=== PATIENT | male | born 1955 | race African-American/Black ===

== ENCOUNTER 2016-09-20 20:10 | Inpatient (IN) | payer OTHER ==
[2016-09-20 20:42] VITALS: BMI 23.3
--- NOTE | 2016-09-20 21:35 | HP ---
CIWA Score - CIWA Score Nausea/Vomitin Muscle Tremors: 3 Anxiety: 3 Agitation: 3 Paroxysmal Sweats: 2 Orientation: 1-Uncertain about Date Tacttile Disturbances: 1-Very Mild Itch/Numbness Auditory Disturbances: 0-None Visual Disturbances: 0-None Headache: 0-None Present CIWA-Ar Total Score: 16 Admission [facility] - HPI Chief Complaint: WITHDRAWAL SYMPTOMS Allergies/Adverse Reactions: Allergies Allergy/AdvReac Type Severity Reaction Status Date / Time No Known Allergies Allergy Verified 06/26/13 15:16 History of Present Illness: 60 Y.O. MAN WITH AN EXTENSIVE HISTORY OF DRUG AND ALCOHOL DEPENDENCE IS SEEKING DETOX. HE WAS PREVIOUSLY HERE IN 06/2013. HE DENIES ANY SIGNIFICANT PERIOD OF SOBRIETY. Exam Limitations: No Limitations - Ebola screening Have you traveled outside of the country in the last 21 days: No Have you had contact with anyone from an Ebola affected area: No Have you been sick,other than usual withdrawal symptoms: No Do you have a fever: No - Review of Systems Constitutional: Night Sweats, Weight Stable EENT: reports: Blurred Vision, Nose Congestion, Difficulty Swallowing Respiratory: reports: Shortness of Breath Cardiac: reports: No Symptoms Reported GI: reports: Diarrhea : reports: No Symptoms Reported Musculoskeletal: reports: Muscle Pain, Muscle Weakness Integumentary: reports: No Symptoms Reported Neuro: reports: Tremors Endocrine: reports: No Symptoms Reported Hematology: reports: No Symptoms Reported Psychiatric: reports: Mood/Affect Appropiate, Anxious, Depressed Other Systems: Reviewed and Negative Patient History - Patient Medical History Hx Anemia: No Hx Asthma: No Hx Chronic Obstructive Pulmonary Disease (COPD): No Hx Cancer: No Hx Cardiac Disorders: No Hx Congestive Heart Failure: No Hx Hypertension: Yes Hx Hypercholesterolemia: No Hx Pacemaker: No HX Cerebrovascular Accident: No Hx Seizures: No Hx Dementia: No Hx Diabetes: No Hx Gastrointestinal Disorders: Yes (GERD) Hx Liver Disease: No Hx Genitourinary Disorders: Yes (SYPHILIS HX WITH TX IN THE PAST) Hx Sexually Transmitted Disorders: Yes (syphilis) Hx Renal Disease (ESRD): No Hx Thyroid Disease: No Hx Human Immunodeficiency Virus (HIV): Yes (SINCE 1996--CURRENTLY ON ANTIVIRAL MEDICATIONS) Hx Hepatitis C: No Hx Depression: Yes (AND ANXIETY) Hx Suicide Attempt: No (DENIES) Hx Bipolar Disorder: No Hx Schizophrenia: No - Patient Surgical History Past Surgical History: Yes Hx Neurologic Surgery: No Hx Cataract Extraction: No Hx Cardiac Surgery: No Hx Lung Surgery: No Hx Breast Surgery: No Hx Breast Biopsy: No Hx Abdominal Surgery: No Hx Appendectomy: Yes (AT 13 YRS OLD) Hx Cholecystectomy: No Hx Genitourinary Surgery: No Hx Section: No Hx Orthopedic Surgery: No Other Surgical History: appendectomy at age 13 Anesthesia Reaction: No - PPD History Previous Implant?: Yes Documented Results: Negative w/proof Implanted On Prior [facility] Admission?: Yes Date: 06/28/13 Results: 0 PPD to be Administered?: Yes - Reproductive History Patient is a Female of Child Bearing Age (11 -55 yrs old): No - Smoking Cessation Smoking history: Current every day smoker Have you smoked in the past 12 months: Yes Aproximately how many cigarettes per day: 2 Hx Chewing Tobacco Use: No Initiated information on smoking cessation: Yes 'Breaking Loose' booklet given: 09/20/16 - Substance & Tx. History Hx Alcohol Use: Yes Hx Substance Use: Yes Substance Use Type: Alcohol, Cocaine, Marijuana Hx Substance Use Treatment: Yes - Substances Abused Alcohol Route: Oral Frequency: Daily Amount used: 3-5 24 OZ OF BEER Age of first use: 17 Date of Last Use: 09/20/16 Crack Route: Smoking Frequency: 3-6 times per week Amount used: $125 WEEK Age of first use: 29 Date of Last Use: 09/19/16 Marijuana/Hashish Route: Smoking Frequency: Daily Amount used: $40 Age of first use: 19 Date of Last Use: 09/19/16 Family Disease History - Family Disease History Family Disease History: Diabetes: Father, Brother, Sister, Heart Disease: Mother (ARTHRITIS, PSORIASIS), Respiratory: Father, Mother, Brother, Sister Admission Physical Exam S - Vital Signs Vital Signs: Vital Signs - 24 hr 09/20/16 20:40 Temperature 96.2 F L Pulse Rate 92 H Respiratory 18 Rate Blood Pressure 142/83 - Physical General Appearance: Yes: Anxious HEENTM: Yes: Normal ENT Inspection Respiratory: Yes: Lungs Clear, Normal Breath Sounds, No Respiratory Distress, No Accessory Muscle Use Neck: Yes: Trachea in good position Breast: Yes: Breast Exam Deferred Cardiology: Yes: Regular Rhythm, Regular Rate Abdominal: Yes: Flat, Soft Genitourinary: Yes: Other (DENIES ANY COMPLAINTS) Musculoskeletal: Yes: Back pain, Muscle Pain Extremities: Yes: Normal Inspection, Normal Range of Motion Neurological: Yes: Alert, Normal Mood/Affect, Normal Response Integumentary: Yes: Normal Color, Dry, Warm Lymphatic: Yes: Within Normal Limits - Diagnostic (1) AIDS (acquired immune deficiency syndrome) Current Visit: Yes Status: Chronic (2) Cocaine dependence Current Visit: Yes Status: Chronic (3) Alcohol dependence with uncomplicated withdrawal Current Visit: Yes Status: Chronic (4) Cannabis dependence, uncomplicated Current Visit: Yes Status: Chronic Cleared for Admission [facility] - Detox or Rehab [facility] Level of Care: Medically Managed Detox Regimen/Protocol: Librium [facility] Breath Alcohol Content Breath Alcohol Content: 0 Urine Drug Screen - Results Drug Screen Negative: No Urine Drug Screen Results: THC-Marijuana, CONOR-Cocaine
[2016-09-20] MEDS ORDERED: MAGNESIUM HYDROX 2400MG/30ML ORAL SUSPENSION 30 ML CUP PO PRN (21:59)
[2016-09-20] MEDS ORDERED: chlordiazePOXIDE HCL 25 MG CAPSULE PO ONE (21:59)
[2016-09-20] MEDS ORDERED: MENTHOL/PHENOL 1 EACH UD MM PRN (21:59)
[2016-09-20] MEDS ORDERED: guaiFENesin/D-METHORPHAN HB 10 ML UNIT-DOSE CUPS PO PRN (21:59)
[2016-09-20] MEDS ORDERED: chlordiazePOXIDE HCL 25 MG CAPSULE PO PRN (21:59)
[2016-09-20] MEDS ORDERED: IBUPROFEN 400 MG TABLET (FP) PO PRN (21:59)
[2016-09-20] MEDS ORDERED: diphenhydrAMINE HCL 50 MG CAPSULE PO PRN (21:59)
[2016-09-20] MEDS ORDERED: LOPERAMIDE HCL 2 MG CAPSULE PO PRN (21:59)
[2016-09-20] MEDS ORDERED: hydrOXYzine PAMOATE 50 MG CAPSULE (FP) PO PRN (21:59)
[2016-09-20] MEDS ORDERED: MAG HYDROX/AL HYDROX/SIMETH 30 ML UNIT-DOSE CUP PO PRN (21:59)
[2016-09-20] MEDS ORDERED: ACETAMINOPHEN 325 MG TABLET (FP) PO PRN (21:59)
[2016-09-20] MEDS ORDERED: MAGNESIUM CITRATE 300 ML BOTTLE PO PRN (21:59)
[2016-09-20] MEDS ORDERED: P-EPHED 60MG/TRIPROLIDI 2.5MG TABLET PO PRN (21:59)
[2016-09-20] MEDS: THIAMINE HCL 100 MG TABLET (FP) PO SCH (23:20)
[2016-09-20] MEDS: chlordiazePOXIDE HCL 25 MG CAPSULE PO SCH (23:20)
[2016-09-20] MEDS: ATORVASTATIN CA 40 MG TABLET (FP) PO SCH (23:20)
[2016-09-21] MEDS: chlordiazePOXIDE HCL 25 MG CAPSULE PO SCH ×4 (05:35→22:13)
--- NOTE | 2016-09-21 08:29 | CONSULT ---
[facility] Psychiatric Consult - Data Date of interview: 09/21/16 Admission source: [facility] Identifying data: This is 60 years old male with no psychiatric hospitalization history, intoxicated with: Alcohol, Cannabis, Cocaine and Nicotine Substance Abuse History: - Smoking Cessation. Smoking history: Current every day smoker. Have you smoked in the past 12 months: Yes. Aproximately how many cigarettes per day: 2. Hx Chewing Tobacco Use: No. Initiated information on smoking cessation: Yes. 'Breaking Loose' booklet given: 09/20/16. - Substance & Tx. History. Hx Alcohol Use: Yes. Hx Substance Use: Yes. Substance Use Type : Alcohol, Cocaine, Marijuana. Hx Substance Use Treatment: Yes. - Substances Abused. Alcohol. Route: Oral. Frequency: Daily. Amount used: 3-5 24 OZ OF BEER. Age of first use: 17. Date of Last Use: 09/20/16. Crack. Route: Smoking. Frequency: 3-6 times per week. Amount used: $125 WEEK. Age of first use: 29. Date of Last Use: 09/19/16. Marijuana/Hashish. Route: Smoking. Frequency: Daily. Amount used: $40. Age of first use: 19. Date of Last Use: 09/19/16 Medical History: HTN, Muscle neuropathy, AIDS, Arthritis history, Psychiatric History: Oatient reports history of depression, reports taking prior to admission: Seroquel 299mg po qhs. Wellbutrin XL 300mg poqd. Trazodone 200mg po qhs Physical/Sexual Abuse/Trauma History: Denies Additional Comment: Seroquel 299mg po qhs. Wellbutrin XL 300mg poqd. Trazodone 200mg po qhs Mental Status Exam - Mental Status Exam Alert and Oriented to: Person Cognitive Function: Fair Patient Appearance: Well Groomed Mood: Apprehensive Affect: Appropriate Patient Behavior: Cooperative Speech Pattern: Appropriate Voice Loudness: Normal Thought Process: Goal Oriented Thought Disorder: Being Controlled Hallucinations: Denies Suicidal Ideation: Denies Homicidal Ideation: Denies Insight/Judgement: Fair Sleep: Difficulty falling asleep Appetite: Fair Muscle strength/Tone: Normal Gait/Station: Normal Additional Comments: Seroquel 299mg po qhs. Wellbutrin XL 300mg poqd. Trazodone 200mg po qhs Psychiatric Findings - Problem List ([place] 1, 2,3) (1) Alcohol dependence with uncomplicated withdrawal Current Visit: Yes Status: Chronic (2) Cannabis dependence, uncomplicated Current Visit: Yes Status: Chronic (3) Cocaine dependence Current Visit: Yes Status: Chronic (4) Alcohol dependence Current Visit: No Status: Acute (5) Depression Current Visit: No Status: Acute (6) Drug-induced mood disorder Current Visit: Yes Status: Acute - Initial Treatment Plan Initial Treatment Plan: Seroquel 299mg po qhs. Wellbutrin XL 300mg poqd. Trazodone 200mg po qhs
[2016-09-21] MEDS ORDERED: DARUNAVIR ETHANOLATE 100 MG/ML BULK BOTTLE PO SCH (10:00)
[2016-09-21] MEDS: NICOTINE 14 MG/24 HOURS TOPICAL PATCH TD SCH (10:15)
[2016-09-21] MEDS: ASPIRIN COATED 81 MG TABLET.EC PO SCH (10:15)
[2016-09-21] MEDS: HYDROCHLOROTHIAZIDE 25 MG TABLET (FP) PO SCH (10:15)
[2016-09-21] MEDS: amLODIPine BESYLATE 10 MG TABLET (FP) PO SCH (10:15)
[2016-09-21] MEDS: PRENATAL VITAMINS W/ FOLIC ACID TABLET (FP) PO SCH (10:15)
--- NOTE | 2016-09-21 10:29 | PN ---
[facility] CIWA - CIWA Score Nausea/Vomitin Muscle Tremors: 3 Anxiety: 3 Agitation: 3 Paroxysmal Sweats: 1-Minimal Palms Moist Orientation: 0-Oriented Tacttile Disturbances: 1-Very Mild Itch/Numbness Auditory Disturbances: 1-Very Mild Visual Disturbances: 1-Very Mild Sensitivity Headache: 2-Mild CIWA-Ar Total Score: 18 BHS Progress Note (SOAP) Subjective: ALERT,IRRITABLE,ANXIOUS,INTERRUPTED SLEEP,TREMOR Objective: 09/21/16 10:28 Vital Signs Temperature 98.2 F 09/21/16 09:48 Pulse Rate 87 09/21/16 09:48 Respiratory Rate 18 09/21/16 09:48 Blood Pressure 124/83 09/21/16 09:48 O2 Sat by Pulse Oximetry (%) EKG NSR NO CHEST PAIN,NO SOB,NO DIZZINESS LABS PENDING Assessment: 09/21/16 10:29 WITHDRAWAL SYMPTOM Plan: CONTINUE DETOX
[2016-09-21 10:59] LABS: ALBUMIN 3.7 g/dl (3.4-5.0); CALCIUM 9.3 mg/dL (8.5-10.1); MCH 31.7 pg (25.7-33.7); MCHC 34.6 g/dl (32.0-35.9); MEAN CELL VOLUME 91.7 fl (80-96); MEAN PLT VOLUME 9.2 fl (7.5-11.1); PLATELET COUNT 172 K/MM3 (134-434); RDW 15.6 % (11.9-15.9); WHITE BLOOD COUNT 5.4 K/mm3 (4.0-10.0)
[2016-09-21 11:04] LABS: BILIRUBIN,TOTAL 0.5 mg/dL (0.2-1.0); COCKROFT - GAULT 47.42; CREATININE 1.7 mg/dL (0.7-1.3); TOT PROT 7.6 g/dl (6.4-8.2)
[2016-09-21] MEDS: DARUNAVIR ETHANOLATE 800 MG TAB PO SCH (11:53)
[2016-09-21] MEDS: EMTRICITABINE 200MG/TENOFOVIR 300MG PO SCH (11:54)
[2016-09-21] MEDS: RITONAVIR 100 MG TABLET PO SCH (11:57)
[2016-09-21] MEDS ORDERED: QUEtiapine FUMARATE 100 MG TABLET (FP) PO STA (11:59)
[2016-09-21] MEDS ORDERED: PNEUMOC 13-VAL CONJ-DIP CRM/PF 0.5 ML DISP.SYRIN IM ONE (12:00)
--- NOTE | 2016-09-21 12:32 | EKG ---
Test Reason : Blood Pressure : / mmHG Vent. Rate : 075 BPM Atrial Rate : 075 BPM P-R Int : 164 ms QRS Dur : 086 ms QT Int : 380 ms P-R-T Axes : 066 075 054 degrees QTc Int : 424 ms NORMAL SINUS RHYTHM POSSIBLE LEFT ATRIAL ENLARGEMENT BORDERLINE ECG NO PREVIOUS ECGS AVAILABLE Confirmed by SUNITA DE LOS SANTOS MD ([id number]) on 09/21/2016 12:31:39 PM Referred By: Confirmed By:SUNITA DE LOS SANTOS MD
[2016-09-21 17:48] LABS: URINE APPEARANCE CLEAR; URINE BILIRUBIN NEGATIVE (NEGATIVE); URINE BLOOD NEGATIVE (NEGATIVE); URINE COLOR STRAW; URINE GLUCOSE (UA) NEGATIVE (NEGATIVE); URINE KETONE NEGATIVE (NEGATIVE); URINE LEUK ESTERASE NEGATIVE (NEGATIVE); URINE NITRITE NEGATIVE (NEGATIVE); URINE PROTEIN NEGATIVE (NEGATIVE); URINE UROBILINOGEN NEGATIVE E.U./dl (0.2-1.0)
[2016-09-21] MEDS ORDERED: QUEtiapine FUMARATE 200 MG TABLET PO SCH (22:00)
[2016-09-21] MEDS: traZODone HCL 100 MG TABLET (FP) PO SCH (22:11)
[2016-09-21] MEDS: QUEtiapine FUMARATE 100 MG TABLET (FP) PO SCH (22:11)
[2016-09-21] MEDS: ATORVASTATIN CA 40 MG TABLET (FP) PO SCH (22:11)
[2016-09-21] MEDS: THIAMINE HCL 100 MG TABLET (FP) PO SCH (22:12)
[2016-09-22] MEDS: chlordiazePOXIDE HCL 25 MG CAPSULE PO SCH ×3 (04:38→17:56)
--- NOTE | 2016-09-22 09:08 | PN ---
[facility] CIWA - CIWA Score Nausea/Vomitin Muscle Tremors: 3 Anxiety: 3 Agitation: 2 Paroxysmal Sweats: 1-Minimal Palms Moist Orientation: 0-Oriented Tacttile Disturbances: 1-Very Mild Itch/Numbness Auditory Disturbances: 1-Very Mild Visual Disturbances: 1-Very Mild Sensitivity Headache: 2-Mild CIWA-Ar Total Score: 17 BHS Progress Note (SOAP) Subjective: ALERT,IRRITABLE,ANXIOUS,INTERRUPTED SLEEP,TREMOR Objective: 09/22/16 09:06 Vital Signs Temperature 97.0 F L 09/22/16 05:58 Pulse Rate 72 09/22/16 05:58 Respiratory Rate 16 09/22/16 05:58 Blood Pressure 111/73 09/22/16 05:58 O2 Sat by Pulse Oximetry (%) 09/22/16 09:07 Laboratory Last Values WBC 5.4 K/mm3 (4.0-10.0) 09/21/16 07:00 RBC 4.02 M/mm3 (4.00-5.60) 09/21/16 07:00 Hgb 12.8 GM/dL (11.7-16.9) D 09/21/16 07:00 Hct 36.9 % (35.4-49) D 09/21/16 07:00 MCV 91.7 fl (80-96) 09/21/16 07:00 MCHC 34.6 g/dl (32.0-35.9) 09/21/16 07:00 RDW 15.6 % (11.9-15.9) 09/21/16 07:00 Plt Count 172 K/MM3 (134-434) D 09/21/16 07:00 MPV 9.2 fl (7.5-11.1) 09/21/16 07:00 Sodium 139 mmol/L (136-145) 09/21/16 07:00 Potassium 4.0 mmol/L (3.5-5.1) 09/21/16 07:00 Chloride 104 mmol/L (98-107) 09/21/16 07:00 Carbon Dioxide 28 mmol/L (21-32) 09/21/16 07:00 Anion Gap 7 (8-16) L 09/21/16 07:00 BUN 26 mg/dL (7-18) H 09/21/16 07:00 Creatinine 1.7 mg/dL (0.7-1.3) H 09/21/16 07:00 Creat Clearance w eGFR 41.46 (>60) 09/21/16 07:00 Random Glucose 84 mg/dL (74-106) 09/21/16 07:00 Calcium 9.3 mg/dL (8.5-10.1) 09/21/16 07:00 Total Bilirubin 0.5 mg/dL (0.2-1.0) D 09/21/16 07:00 AST 28 U/L (15-37) D 09/21/16 07:00 ALT 28 U/L (12-78) D 09/21/16 07:00 Alkaline Phosphatase 52 U/L (45-117) 09/21/16 07:00 Total Protein 7.6 g/dl (6.4-8.2) 09/21/16 07:00 Albumin 3.7 g/dl (3.4-5.0) 09/21/16 07:00 Urine Color Straw 09/21/16 13:00 Urine Appearance Clear 09/21/16 13:00 Urine pH 5.0 (5.0-8.0) 09/21/16 13:00 Ur Specific [place] 1.006 (1.001-1.035) 09/21/16 13:00 Urine Protein Negative (NEGATIVE) 09/21/16 13:00 Urine Glucose (UA) Negative (NEGATIVE) 09/21/16 13:00 Urine Ketones Negative (NEGATIVE) 09/21/16 13:00 Urine Blood Negative (NEGATIVE) 09/21/16 13:00 Urine Nitrite Negative (NEGATIVE) 09/21/16 13:00 Urine Bilirubin Negative (NEGATIVE) 09/21/16 13:00 Urine Urobilinogen Negative E.U./dl (0.2-1.0) 09/21/16 13:00 Ur Leukocyte Esterase Negative (NEGATIVE) 09/21/16 13:00 RPR Titer Reactive 1:4 (NONREACTIVE) H 09/21/16 07:00 T.pallidum Ab (MHA) Previously reactive (NONREACTIVE) 09/21/16 07:00 09/22/16 09:10 PREVIOUSLY TREATED FOR SYPHILIS Assessment: 09/22/16 09:11 WITHDRAWAL SYMPTOM Plan: CONTINUE DETOX,PATIENT WANTED TO BE OR REGULAR DIET,AZOTHEMIA,ENCOURAGE ORAL FLUID, REPEAT BMP IN AM
[2016-09-22] MEDS: EMTRICITABINE 200MG/TENOFOVIR 300MG PO SCH (10:16)
[2016-09-22] MEDS: PRENATAL VITAMINS W/ FOLIC ACID TABLET (FP) PO SCH (10:17)
[2016-09-22] MEDS: HYDROCHLOROTHIAZIDE 25 MG TABLET (FP) PO SCH (10:17)
[2016-09-22] MEDS: amLODIPine BESYLATE 10 MG TABLET (FP) PO SCH (10:17)
[2016-09-22] MEDS: DARUNAVIR ETHANOLATE 800 MG TAB PO SCH (10:17)
[2016-09-22] MEDS: NICOTINE 14 MG/24 HOURS TOPICAL PATCH TD SCH (10:17)
[2016-09-22] MEDS: ASPIRIN COATED 81 MG TABLET.EC PO SCH (10:17)
[2016-09-22] MEDS: RITONAVIR 100 MG TABLET PO SCH (10:18)
[2016-09-22] MEDS: QUEtiapine FUMARATE 100 MG TABLET (FP) PO SCH ×2 (10:30→22:41)
[2016-09-22] MEDS: NICOTINE POLACRILEX 2 MG GUM BC PRN ×2 (14:59→22:53)
[2016-09-22] MEDS: THIAMINE HCL 100 MG TABLET (FP) PO SCH (22:41)
[2016-09-22] MEDS: traZODone HCL 100 MG TABLET (FP) PO SCH (22:41)
[2016-09-22] MEDS: ATORVASTATIN CA 40 MG TABLET (FP) PO SCH (22:42)
[2016-09-22] MEDS: chlordiazePOXIDE 5 MG CAPSULE PO SCH (23:54)
[2016-09-23] MEDS: chlordiazePOXIDE 5 MG CAPSULE PO SCH ×3 (05:34→17:58)
[2016-09-23] MEDS: NICOTINE POLACRILEX 2 MG GUM BC PRN (07:51)
[2016-09-23] MEDS ORDERED: diphenhydrAMINE HCL 50 MG CAPSULE PO PRN (10:33)
[2016-09-23] MEDS: HYDROCHLOROTHIAZIDE 25 MG TABLET (FP) PO SCH (11:20)
[2016-09-23] MEDS: PRENATAL VITAMINS W/ FOLIC ACID TABLET (FP) PO SCH (11:20)
[2016-09-23] MEDS: RITONAVIR 100 MG TABLET PO SCH (11:20)
[2016-09-23] MEDS: EMTRICITABINE 200MG/TENOFOVIR 300MG PO SCH (11:20)
[2016-09-23] MEDS: DARUNAVIR ETHANOLATE 800 MG TAB PO SCH (11:20)
[2016-09-23] MEDS: amLODIPine BESYLATE 10 MG TABLET (FP) PO SCH (11:21)
[2016-09-23] MEDS: NICOTINE 14 MG/24 HOURS TOPICAL PATCH TD SCH (11:21)
[2016-09-23] MEDS: ASPIRIN COATED 81 MG TABLET.EC PO SCH (11:21)
[2016-09-23] MEDS: QUEtiapine FUMARATE 100 MG TABLET (FP) PO SCH ×2 (11:23→23:05)
[2016-09-23 11:30] LABS: CALCIUM 9.7 mg/dL (8.5-10.1); COCKROFT - GAULT 44.79; CREATININE 1.8 mg/dL (0.7-1.3)
[2016-09-23] MEDS ORDERED: ONDANSETRON *ODT* 4 MG TABLET SL PRN (11:38)
[2016-09-23] MEDS ORDERED: diphenhydrAMINE HCL 25 MG CAPSULE (FP) PO PRN (11:44)
--- NOTE | 2016-09-23 16:41 | PN ---
BHS Progress Note (SOAP) Subjective: Vomiting, Tremors,Interrupted sleep, Sweating, Body Aches, Diarrhea. Objective: PT. & O X 2 (DISORIENTED ABOUT DAY / DATE). PT. OBSERVED AMBULATING ON UNIT. 09/23/16 16:39 Vital Signs Temperature 97.9 F 09/23/16 14:23 Pulse Rate 95 H 09/23/16 14:23 Respiratory Rate 18 09/23/16 14:23 Blood Pressure 120/77 09/23/16 14:23 O2 Sat by Pulse Oximetry (%) Laboratory Last Values WBC 5.4 K/mm3 (4.0-10.0) 09/21/16 07:00 RBC 4.02 M/mm3 (4.00-5.60) 09/21/16 07:00 Hgb 12.8 GM/dL (11.7-16.9) D 09/21/16 07:00 Hct 36.9 % (35.4-49) D 09/21/16 07:00 MCV 91.7 fl (80-96) 09/21/16 07:00 MCHC 34.6 g/dl (32.0-35.9) 09/21/16 07:00 RDW 15.6 % (11.9-15.9) 09/21/16 07:00 Plt Count 172 K/MM3 (134-434) D 09/21/16 07:00 MPV 9.2 fl (7.5-11.1) 09/21/16 07:00 Sodium 141 mmol/L (136-145) 09/23/16 07:50 Potassium 3.9 mmol/L (3.5-5.1) 09/23/16 07:50 Chloride 104 mmol/L (98-107) 09/23/16 07:50 Carbon Dioxide 27 mmol/L (21-32) 09/23/16 07:50 Anion Gap 10 (8-16) 09/23/16 07:50 BUN 22 mg/dL (7-18) H 09/23/16 07:50 Creatinine 1.8 mg/dL (0.7-1.3) H 09/23/16 07:50 Creat Clearance w eGFR 41.46 (>60) 09/21/16 07:00 Random Glucose 98 mg/dL (74-106) 09/23/16 07:50 Calcium 9.7 mg/dL (8.5-10.1) 09/23/16 07:50 Total Bilirubin 0.5 mg/dL (0.2-1.0) D 09/21/16 07:00 AST 28 U/L (15-37) D 09/21/16 07:00 ALT 28 U/L (12-78) D 09/21/16 07:00 Alkaline Phosphatase 52 U/L (45-117) 09/21/16 07:00 Total Protein 7.6 g/dl (6.4-8.2) 09/21/16 07:00 Albumin 3.7 g/dl (3.4-5.0) 09/21/16 07:00 Urine Color Straw 09/21/16 13:00 Urine Appearance Clear 09/21/16 13:00 Urine pH 5.0 (5.0-8.0) 09/21/16 13:00 Ur Specific [place] 1.006 (1.001-1.035) 09/21/16 13:00 Urine Protein Negative (NEGATIVE) 09/21/16 13:00 Urine Glucose (UA) Negative (NEGATIVE) 09/21/16 13:00 Urine Ketones Negative (NEGATIVE) 09/21/16 13:00 Urine Blood Negative (NEGATIVE) 09/21/16 13:00 Urine Nitrite Negative (NEGATIVE) 09/21/16 13:00 Urine Bilirubin Negative (NEGATIVE) 09/21/16 13:00 Urine Urobilinogen Negative E.U./dl (0.2-1.0) 09/21/16 13:00 Ur Leukocyte Esterase Negative (NEGATIVE) 09/21/16 13:00 RPR Titer Reactive 1:4 (NONREACTIVE) H 09/21/16 07:00 T.pallidum Ab (MHA) Previously reactive (NONREACTIVE) 09/21/16 07:00 LABS NOTED. PATIENT PREVIOUSLY TREATED FOR SYPHILIS. 09/23/16 16:41 09/23/16 16:42 Assessment: 09/23/16 16:40 WITHDRAWAL SYMPTOMS. 09/23/16 16:41 Plan: CONTINUE DETOX. ADVISED PATIENT TO FOLLOW-UP WITH [facility] / REHAB MEDICAL PROVIDER AFTER DISCHARGE FROM DETOX FOR GENERAL MEDICAL ASSESSMENT AND FOR ABNORMAL ADMISSION LAB VALUES.
[2016-09-23] MEDS: traZODone HCL 100 MG TABLET (FP) PO SCH (23:05)
[2016-09-23] MEDS: THIAMINE HCL 100 MG TABLET (FP) PO SCH (23:05)
[2016-09-23] MEDS: ATORVASTATIN CA 40 MG TABLET (FP) PO SCH (23:07)
[2016-09-23] MEDS: chlordiazePOXIDE HCL 10 MG CAPSULE PO SCH (23:08)
[2016-09-24] MEDS: chlordiazePOXIDE HCL 10 MG CAPSULE PO SCH ×2 (06:45→10:35)
[2016-09-24 10:00] VITALS: BP 150/54; PULSE 89; TEMP 96.6
[2016-09-24] MEDS: PRENATAL VITAMINS W/ FOLIC ACID TABLET (FP) PO SCH (10:33)
[2016-09-24] MEDS: EMTRICITABINE 200MG/TENOFOVIR 300MG PO SCH (10:34)
[2016-09-24] MEDS: HYDROCHLOROTHIAZIDE 25 MG TABLET (FP) PO SCH (10:34)
[2016-09-24] MEDS: RITONAVIR 100 MG TABLET PO SCH (10:34)
[2016-09-24] MEDS: DARUNAVIR ETHANOLATE 800 MG TAB PO SCH (10:34)
[2016-09-24] MEDS: amLODIPine BESYLATE 10 MG TABLET (FP) PO SCH (10:34)
[2016-09-24] MEDS: ASPIRIN COATED 81 MG TABLET.EC PO SCH (10:34)
[2016-09-24] MEDS: NICOTINE 14 MG/24 HOURS TOPICAL PATCH TD SCH (10:35)
[2016-09-24] MEDS: QUEtiapine FUMARATE 100 MG TABLET (FP) PO SCH (10:35)
--- NOTE | 2016-09-24 12:47 | DS ---
[facility] Detox Discharge Summary Admission Date: 09/20/16 Discharge Date: 09/24/16 - History Present History: Alcohol Dependence, Cannabis Dependence, Cocaine Dependence Pertinent Past History: AIDS HTN Peripheral Neuropathy - Physical Exam Results Vital Signs: Vital Signs Temperature 96.6 F L 09/24/16 09:59 Pulse Rate 89 09/24/16 09:59 Respiratory Rate 18 09/24/16 09:59 Blood Pressure 150/54 09/24/16 09:59 O2 Sat by Pulse Oximetry (%) Pertinent Admission Physical Exam Findings: Withdrawal sx. Laboratory Last Values WBC 5.4 K/mm3 (4.0-10.0) 09/21/16 07:00 RBC 4.02 M/mm3 (4.00-5.60) 09/21/16 07:00 Hgb 12.8 GM/dL (11.7-16.9) D 09/21/16 07:00 Hct 36.9 % (35.4-49) D 09/21/16 07:00 MCV 91.7 fl (80-96) 09/21/16 07:00 MCHC 34.6 g/dl (32.0-35.9) 09/21/16 07:00 RDW 15.6 % (11.9-15.9) 09/21/16 07:00 Plt Count 172 K/MM3 (134-434) D 09/21/16 07:00 MPV 9.2 fl (7.5-11.1) 09/21/16 07:00 Sodium 141 mmol/L (136-145) 09/23/16 07:50 Potassium 3.9 mmol/L (3.5-5.1) 09/23/16 07:50 Chloride 104 mmol/L (98-107) 09/23/16 07:50 Carbon Dioxide 27 mmol/L (21-32) 09/23/16 07:50 Anion Gap 10 (8-16) 09/23/16 07:50 BUN 22 mg/dL (7-18) H 09/23/16 07:50 Creatinine 1.8 mg/dL (0.7-1.3) H 09/23/16 07:50 Creat Clearance w eGFR 41.46 (>60) 09/21/16 07:00 Random Glucose 98 mg/dL (74-106) 09/23/16 07:50 Calcium 9.7 mg/dL (8.5-10.1) 09/23/16 07:50 Total Bilirubin 0.5 mg/dL (0.2-1.0) D 09/21/16 07:00 AST 28 U/L (15-37) D 09/21/16 07:00 ALT 28 U/L (12-78) D 09/21/16 07:00 Alkaline Phosphatase 52 U/L (45-117) 09/21/16 07:00 Total Protein 7.6 g/dl (6.4-8.2) 09/21/16 07:00 Albumin 3.7 g/dl (3.4-5.0) 09/21/16 07:00 Urine Color Straw 09/21/16 13:00 Urine Appearance Clear 09/21/16 13:00 Urine pH 5.0 (5.0-8.0) 09/21/16 13:00 Ur Specific [place] 1.006 (1.001-1.035) 09/21/16 13:00 Urine Protein Negative (NEGATIVE) 09/21/16 13:00 Urine Glucose (UA) Negative (NEGATIVE) 09/21/16 13:00 Urine Ketones Negative (NEGATIVE) 09/21/16 13:00 Urine Blood Negative (NEGATIVE) 09/21/16 13:00 Urine Nitrite Negative (NEGATIVE) 09/21/16 13:00 Urine Bilirubin Negative (NEGATIVE) 09/21/16 13:00 Urine Urobilinogen Negative E.U./dl (0.2-1.0) 09/21/16 13:00 Ur Leukocyte Esterase Negative (NEGATIVE) 09/21/16 13:00 RPR Titer Reactive 1:4 (NONREACTIVE) H 09/21/16 07:00 T.pallidum Ab (MHA) Previously reactive (NONREACTIVE) 09/21/16 07:00 labs noted - Treatment Hospital Course: Detox Protocol Followed, Detoxed Safely, Responded well, Discharged Condition Good, Rehab Referral Accepted Patient has Accepted a Rehab Referral to: [facility] - Medication Discharge Medications: Ambulatory Orders Clobetasol Propionate 60 gm TP BID 06/26/13 Darunavir Ethanolate [Prezista] 800 mg PO DAILY 06/26/13 Diphenhydramine HCl [Benadryl Capsules -] 50 mg PO BID PRN 06/26/13 Emtricitabine/Tenofovir [Truvada -] 1 tab PO DAILY 06/26/13 Hydrochlorothiazide [Hctz -] 25 mg PO DAILY 06/26/13 Ibuprofen [Motrin -] 400 mg PO BID PRN 06/26/13 Ritonavir [Norvir -] 100 mg PO DAILY 06/26/13 Trazodone HCl [Desyrel -] 200 mg PO HS 06/26/13 Bupropion HCl [Wellbutrin Xl -] 450 mg PO DAILY #90 tab 06/27/13 Quetiapine Fumarate [Seroquel -] 200 mg PO HS 09/20/16 Bupropion HCl [Wellbutrin Xl -] 300 mg PO DAILY #30 tab 09/21/16 Quetiapine Fumarate [Seroquel -] 200 mg PO HS #30 tab 09/21/16 Trazodone HCl [Desyrel -] 200 mg PO HS #30 tablet 09/21/16 - Diagnosis (1) Drug-induced mood disorder Status: Acute (2) Essential hypertension Status: Acute (3) Peripheral neuropathy Status: Acute (4) AIDS (acquired immune deficiency syndrome) Status: Chronic (5) Alcohol dependence with uncomplicated withdrawal Status: Acute (6) Cannabis dependence, uncomplicated Status: Acute (7) Cocaine dependence Status: Acute Qualifiers: Substance use status: uncomplicated Qualified Code(s): F14.20 - Cocaine dependence, uncomplicated - AMA Did Patient Leave Against Medical Advice: No
== END 2016-09-24 12:10 | disposition other institution (70) | DRG 774 ==
LOC: YASAS 20:10 → Y6N 22:00
PROVIDERS: ADMIT Internal Medicine Addiction Medicine; ATTEND Internal Medicine Addiction Medicine
PROC: HZ2ZZZZ Detoxification Services for Substance Abuse Treatment (ICD-10-PCS; principal; 2016-09-20)
DX: F10.230 Alcohol dependence with withdrawal, uncomplicated (principal); F14.20 Cocaine dependence, uncomplicated; F12.20 Cannabis dependence, uncomplicated; F19.24 Other psychoactive substance dependence with psychoactive substance-induced mood disorder; F32.9 Major depressive disorder, single episode, unspecified; I10 Essential (primary) hypertension; G62.9 Polyneuropathy, unspecified; B20 Human immunodeficiency virus [HIV] disease; K21.9 Gastro-esophageal reflux disease without esophagitis; Z87.438 Personal history of other diseases of male genital organs; Z72.0 Tobacco use
CPT/HCPCS: 36415; 80048; 80053; 81003; 85027; 86593; 86780; 90670; 93005; 93010

== ENCOUNTER 2016-09-24 12:30 | Inpatient (IN) | payer OTHER ==
[2016-09-24 13:07] VITALS: BMI 24.6
[2016-09-24] MEDS ORDERED: P-EPHED 60MG/TRIPROLIDI 2.5MG TABLET PO PRN (13:25)
[2016-09-24] MEDS ORDERED: LOPERAMIDE HCL 2 MG CAPSULE PO PRN (13:25)
[2016-09-24] MEDS ORDERED: MAGNESIUM CITRATE 300 ML BOTTLE PO PRN (13:25)
[2016-09-24] MEDS ORDERED: MAG HYDROX/AL HYDROX/SIMETH 30 ML UNIT-DOSE CUP PO PRN (13:25)
--- NOTE | 2016-09-24 13:29 | HP ---
[facility] Rehab Assess/Revision - Admission History Admitted to Rehab from: [facility] Date of Admission to Rehab: 09/24/16 - Vital signs Vital Signs: Vital Signs Period Temp Pulse Resp BP Sys/[place] Pulse Ox Last 24 Hr 98 F-98 F 90-90 18-18 134-134/88-88 - Findings Detox History & Physical reviewed: Yes Concur with findings: Yes
[2016-09-24] MEDS ORDERED: PT OWN MED DRAWER 7, Y5N ONE (14:04)
[2016-09-24] MEDS: traZODone HCL 100 MG TABLET (FP) PO SCH (21:17)
[2016-09-24] MEDS: THIAMINE HCL 100 MG TABLET (FP) PO SCH (21:17)
[2016-09-24] MEDS: QUEtiapine FUMARATE 50 MG TABLET PO SCH (21:17)
[2016-09-24] MEDS ORDERED: QUEtiapine FUMARATE 100 MG TABLET (FP) PO SCH (22:00)
[2016-09-24] MEDS ORDERED: ATORVASTATIN CA 40 MG TABLET (FP) PO SCH (22:00)
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
[2016-09-25] MEDS ORDERED: PT OWN MED DRAWER 7, Y5N ONE ×7 (09:03→19:57)
[2016-09-25] MEDS ORDERED: amLODIPine BESYLATE 10 MG TABLET (FP) PO SCH (10:00)
[2016-09-25] MEDS ORDERED: HYDROCHLOROTHIAZIDE 25 MG TABLET (FP) PO SCH (10:00)
[2016-09-25] MEDS ORDERED: EMTRICITABINE 200MG/TENOFOVIR 300MG PO SCH (10:00)
[2016-09-25] MEDS ORDERED: ASPIRIN COATED 81 MG TABLET.EC PO SCH (10:00)
[2016-09-25] MEDS ORDERED: RITONAVIR 100 MG TABLET PO SCH (10:00)
[2016-09-25] MEDS: PRENATAL VITAMINS W/ FOLIC ACID TABLET (FP) PO SCH (10:28)
[2016-09-25] MEDS: QUEtiapine FUMARATE 50 MG TABLET PO SCH ×2 (10:28→21:12)
[2016-09-25] MEDS: NICOTINE 21 MG/24 HOURS TOPICAL PATCH TD SCH (10:33)
[2016-09-25] MEDS ORDERED: DARUNAVIR ETHANOLATE 100 MG/ML BULK BOTTLE PO ONE (13:08)
[2016-09-25] MEDS ORDERED: ERGOCALCIFEROL (VITAMIN D2) 50,000 UNIT CAPSULE (FP) PO ONE (14:15)
[2016-09-25] MEDS ORDERED: DARUNAVIR ETHANOLATE 800 MG TAB PO ONE (14:30)
[2016-09-25] MEDS ORDERED: QUEtiapine FUMARATE 25 MG TABLET (FP) ONE (19:49)
[2016-09-25] MEDS: ATORVASTATIN CA 20 MG TABLET (FP) PO SCH (21:11)
[2016-09-25] MEDS: traZODone HCL 100 MG TABLET (FP) PO SCH (21:11)
[2016-09-25] MEDS: THIAMINE HCL 100 MG TABLET (FP) PO SCH (21:11)
[2016-09-26] MEDS: DARUNAVIR ETHANOLATE 800 MG TAB PO SCH (10:22)
[2016-09-26] MEDS: PRENATAL VITAMINS W/ FOLIC ACID TABLET (FP) PO SCH (10:22)
[2016-09-26] MEDS: QUEtiapine FUMARATE 50 MG TABLET PO SCH ×2 (10:23→21:16)
[2016-09-26] MEDS: amLODIPine BESYLATE 10 MG TABLET (FP) PO SCH (10:23)
[2016-09-26] MEDS: HYDROCHLOROTHIAZIDE 25 MG TABLET (FP) PO SCH (10:23)
[2016-09-26] MEDS: ASPIRIN COATED 81 MG TABLET.EC PO SCH (10:23)
[2016-09-26] MEDS: ACETAMINOPHEN 325 MG TABLET (FP) PO PRN (10:24)
[2016-09-26] MEDS: EMTRICITABINE 200MG/TENOFOVIR 300MG PO SCH (10:24)
[2016-09-26] MEDS: RITONAVIR 100 MG TABLET PO SCH (10:24)
[2016-09-26] MEDS: NICOTINE 21 MG/24 HOURS TOPICAL PATCH TD SCH (10:25)
[2016-09-26] MEDS: traZODone HCL 100 MG TABLET (FP) PO SCH (21:16)
[2016-09-26] MEDS: ATORVASTATIN CA 20 MG TABLET (FP) PO SCH (21:16)
[2016-09-26] MEDS: THIAMINE HCL 100 MG TABLET (FP) PO SCH (21:16)
[2016-09-26] MEDS ORDERED: SIMETHICONE 80 MG TAB.CHEW (FP) PO PRN (22:02)
[2016-09-27] MEDS ORDERED: PT OWN MED DRAWER 7, Y5N ONE (09:04)
[2016-09-27] MEDS: amLODIPine BESYLATE 10 MG TABLET (FP) PO SCH (10:14)
[2016-09-27] MEDS: PRENATAL VITAMINS W/ FOLIC ACID TABLET (FP) PO SCH (10:14)
[2016-09-27] MEDS: ASPIRIN COATED 81 MG TABLET.EC PO SCH (10:15)
[2016-09-27] MEDS: HYDROCHLOROTHIAZIDE 25 MG TABLET (FP) PO SCH (10:15)
[2016-09-27] MEDS: QUEtiapine FUMARATE 50 MG TABLET PO SCH ×2 (10:15→21:17)
[2016-09-27] MEDS: RITONAVIR 100 MG TABLET PO SCH (10:16)
[2016-09-27] MEDS: EMTRICITABINE 200MG/TENOFOVIR 300MG PO SCH (10:16)
[2016-09-27] MEDS: DARUNAVIR ETHANOLATE 800 MG TAB PO SCH (10:16)
[2016-09-27] MEDS: NICOTINE 21 MG/24 HOURS TOPICAL PATCH TD SCH (10:20)
[2016-09-27] MEDS: NICOTINE POLACRILEX 2 MG GUM BUC PRN (10:20)
[2016-09-27] MEDS: ACETAMINOPHEN 325 MG TABLET (FP) PO PRN (15:58)
[2016-09-27] MEDS: THIAMINE HCL 100 MG TABLET (FP) PO SCH (21:17)
[2016-09-27] MEDS: traZODone HCL 100 MG TABLET (FP) PO SCH (21:17)
[2016-09-27] MEDS: ATORVASTATIN CA 20 MG TABLET (FP) PO SCH (21:17)
[2016-09-28] MEDS ORDERED: PT OWN MED DRAWER 7, Y5N ONE (09:35)
[2016-09-28] MEDS: ASPIRIN COATED 81 MG TABLET.EC PO SCH (10:21)
[2016-09-28] MEDS: PRENATAL VITAMINS W/ FOLIC ACID TABLET (FP) PO SCH (10:21)
[2016-09-28] MEDS: DARUNAVIR ETHANOLATE 800 MG TAB PO SCH (10:21)
[2016-09-28] MEDS: HYDROCHLOROTHIAZIDE 25 MG TABLET (FP) PO SCH (10:21)
[2016-09-28] MEDS: QUEtiapine FUMARATE 50 MG TABLET PO SCH ×2 (10:21→21:21)
[2016-09-28] MEDS: amLODIPine BESYLATE 10 MG TABLET (FP) PO SCH (10:22)
[2016-09-28] MEDS: NICOTINE 21 MG/24 HOURS TOPICAL PATCH TD SCH (10:23)
[2016-09-28] MEDS: EMTRICITABINE 200MG/TENOFOVIR 300MG PO SCH (10:24)
[2016-09-28] MEDS: RITONAVIR 100 MG TABLET PO SCH (10:25)
[2016-09-28] MEDS: ACETAMINOPHEN 325 MG TABLET (FP) PO PRN (15:55)
[2016-09-28] MEDS: THIAMINE HCL 100 MG TABLET (FP) PO SCH (21:20)
[2016-09-28] MEDS: traZODone HCL 100 MG TABLET (FP) PO SCH (21:20)
[2016-09-28] MEDS: ATORVASTATIN CA 20 MG TABLET (FP) PO SCH (21:21)
[2016-09-29] MEDS ORDERED: PT OWN MED DRAWER 7, Y5N ONE ×4 (09:10→11:11)
[2016-09-29] MEDS: ASPIRIN COATED 81 MG TABLET.EC PO SCH (10:22)
[2016-09-29] MEDS: PRENATAL VITAMINS W/ FOLIC ACID TABLET (FP) PO SCH (10:22)
[2016-09-29] MEDS: DARUNAVIR ETHANOLATE 800 MG TAB PO SCH (10:23)
[2016-09-29] MEDS: amLODIPine BESYLATE 10 MG TABLET (FP) PO SCH (10:23)
[2016-09-29] MEDS: EMTRICITABINE 200MG/TENOFOVIR 300MG PO SCH (10:23)
[2016-09-29] MEDS: HYDROCHLOROTHIAZIDE 25 MG TABLET (FP) PO SCH (10:24)
[2016-09-29] MEDS: NICOTINE 21 MG/24 HOURS TOPICAL PATCH TD SCH (10:25)
[2016-09-29] MEDS: RITONAVIR 100 MG TABLET PO SCH (10:57)
[2016-09-29] MEDS: QUEtiapine FUMARATE 50 MG TABLET PO SCH ×2 (10:58→21:27)
[2016-09-29] MEDS: THIAMINE HCL 100 MG TABLET (FP) PO SCH (21:26)
[2016-09-29] MEDS: ATORVASTATIN CA 20 MG TABLET (FP) PO SCH (21:27)
[2016-09-29] MEDS: traZODone HCL 100 MG TABLET (FP) PO SCH (21:27)
[2016-09-30] MEDS: ACETAMINOPHEN 325 MG TABLET (FP) PO PRN (05:57)
[2016-09-30] MEDS ORDERED: PT OWN MED DRAWER 7, Y5N ONE (08:42)
[2016-09-30] MEDS: QUEtiapine FUMARATE 50 MG TABLET PO SCH ×2 (10:24→21:24)
[2016-09-30] MEDS: ASPIRIN COATED 81 MG TABLET.EC PO SCH (10:24)
[2016-09-30] MEDS: PRENATAL VITAMINS W/ FOLIC ACID TABLET (FP) PO SCH (10:24)
[2016-09-30] MEDS: amLODIPine BESYLATE 10 MG TABLET (FP) PO SCH (10:24)
[2016-09-30] MEDS: HYDROCHLOROTHIAZIDE 25 MG TABLET (FP) PO SCH (10:24)
[2016-09-30] MEDS: RITONAVIR 100 MG TABLET PO SCH (10:25)
[2016-09-30] MEDS: EMTRICITABINE 200MG/TENOFOVIR 300MG PO SCH (10:25)
[2016-09-30] MEDS: DARUNAVIR ETHANOLATE 800 MG TAB PO SCH (10:25)
[2016-09-30] MEDS: NICOTINE 21 MG/24 HOURS TOPICAL PATCH TD SCH (10:28)
[2016-09-30] MEDS: traZODone HCL 100 MG TABLET (FP) PO SCH (21:24)
[2016-09-30] MEDS: ATORVASTATIN CA 20 MG TABLET (FP) PO SCH (21:24)
[2016-09-30] MEDS: THIAMINE HCL 100 MG TABLET (FP) PO SCH (21:24)
[2016-10-01] MEDS: ACETAMINOPHEN 325 MG TABLET (FP) PO PRN (06:02)
[2016-10-01] MEDS ORDERED: PT OWN MED DRAWER 7, Y5N ONE ×2 (08:47→10:49)
[2016-10-01] MEDS: ASPIRIN COATED 81 MG TABLET.EC PO SCH (10:30)
[2016-10-01] MEDS: HYDROCHLOROTHIAZIDE 25 MG TABLET (FP) PO SCH (10:30)
[2016-10-01] MEDS: PRENATAL VITAMINS W/ FOLIC ACID TABLET (FP) PO SCH (10:30)
[2016-10-01] MEDS: amLODIPine BESYLATE 10 MG TABLET (FP) PO SCH (10:30)
[2016-10-01] MEDS: QUEtiapine FUMARATE 50 MG TABLET PO SCH ×2 (10:30→21:09)
[2016-10-01] MEDS: DARUNAVIR ETHANOLATE 800 MG TAB PO SCH (10:31)
[2016-10-01] MEDS: EMTRICITABINE 200MG/TENOFOVIR 300MG PO SCH (10:31)
[2016-10-01] MEDS: RITONAVIR 100 MG TABLET PO SCH (10:31)
[2016-10-01] MEDS: NICOTINE 21 MG/24 HOURS TOPICAL PATCH TD SCH (10:33)
[2016-10-01] MEDS: MAGNESIUM HYDROX 2400MG/30ML ORAL SUSPENSION 30 ML CUP PO PRN (10:34)
[2016-10-01] MEDS: diphenhydrAMINE HCL 25 MG CAPSULE (FP) PO PRN (14:55)
[2016-10-01] MEDS: THIAMINE HCL 100 MG TABLET (FP) PO SCH (21:09)
[2016-10-01] MEDS: ATORVASTATIN CA 20 MG TABLET (FP) PO SCH (21:09)
[2016-10-01] MEDS: traZODone HCL 100 MG TABLET (FP) PO SCH (21:10)
[2016-10-01] MEDS: diphenhydrAMINE HCL 50 MG CAPSULE PO PRN (21:10)
[2016-10-02] MEDS: IBUPROFEN 400 MG TABLET (FP) PO PRN (05:52)
[2016-10-02] MEDS ORDERED: PT OWN MED DRAWER 7, Y5N ONE ×2 (09:03→09:11)
[2016-10-02] MEDS: QUEtiapine FUMARATE 50 MG TABLET PO SCH ×2 (10:00→21:22)
[2016-10-02] MEDS: ASPIRIN COATED 81 MG TABLET.EC PO SCH (10:00)
[2016-10-02] MEDS: HYDROCHLOROTHIAZIDE 25 MG TABLET (FP) PO SCH (10:00)
[2016-10-02] MEDS: DARUNAVIR ETHANOLATE 800 MG TAB PO SCH (10:00)
[2016-10-02] MEDS: amLODIPine BESYLATE 10 MG TABLET (FP) PO SCH (10:00)
[2016-10-02] MEDS: PRENATAL VITAMINS W/ FOLIC ACID TABLET (FP) PO SCH (10:00)
[2016-10-02] MEDS: ERGOCALCIFEROL (VITAMIN D2) 50,000 UNIT CAPSULE (FP) PO SCH (10:01)
[2016-10-02] MEDS: NICOTINE 21 MG/24 HOURS TOPICAL PATCH TD SCH (10:01)
[2016-10-02] MEDS: NICOTINE POLACRILEX 2 MG GUM BUC PRN (10:02)
[2016-10-02] MEDS: EMTRICITABINE 200MG/TENOFOVIR 300MG PO SCH (10:02)
[2016-10-02] MEDS: RITONAVIR 100 MG TABLET PO SCH (10:02)
[2016-10-02] MEDS: diphenhydrAMINE HCL 25 MG CAPSULE (FP) PO PRN (10:03)
--- NOTE | 2016-10-02 10:51 | PN ---
Psychiatric Progress Note Vital Signs: Vital Signs Period Temp Pulse Resp BP Sys/Valencia Pulse Ox Last 24 Hr 98.0 F 89-94 18-20 129-147/82-88 Date of Session: 10/02/16 Chief Complaint:: Insomnia HPI: Patient addressing Alcohol, Cocaine and Cannabis Dependence comorbid with Nicotine Dependence and MDD ROS: HTN, AIDS, Peripheral Neuropathy, Arthritis Current Medications: Active Medications Generic Name Dose Route Start Last Admin Trade Name Freq PRN Reason Stop Dose Admin Acetaminophen 650 mg 09/24/16 13:25 10/01/16 06:02 Tylenol - PO 650 mg Q4H PRN Administration FEVER OR PAIN Al Hydroxide/Mg Hydroxide 30 ml 09/24/16 13:25 Mylanta Oral Suspension - PO Q6H PRN DYSPEPSIA Amlodipine Besylate 10 mg 09/25/16 14:24 10/02/16 10:00 Norvasc - PO 10 mg DAILY [facility]IQUI Administration Aspirin 81 mg 09/25/16 14:27 10/02/16 10:00 Ecotrin - PO 81 mg DAILY [facility]I Administration Atorvastatin Calcium 20 mg 09/25/16 22:00 10/01/16 21:09 Lipitor - PO 20 mg HS [facility]QUI Administration Bupropion HCl 450 mg 09/26/16 10:00 10/02/16 10:00 Wellbutrin Xl - PO 450 mg DAILY [facility]QUI Administration Darunavir 800 mg 09/26/16 10:00 10/02/16 10:00 Prezista - PO 800 mg DAILY CH[facility]QUI Administration Diphenhydramine HCl 50 mg 09/24/16 13:25 10/01/16 21:10 Benadryl - PO 50 mg HSMR1 PRN Administration FOR ITCHING Diphenhydramine HCl 25 mg 10/01/16 13:06 10/02/16 10:03 Benadryl - PO 25 mg Q6H PRN Administration FOR ITCHING Emtricitabine/Tenofovir 1 tab 09/25/16 14:17 10/02/16 10:02 Truvada PO 1 tab DAILY [facility]I Administration Ergocalciferol 50,000 unit 10/02/16 10:00 10/02/16 10:01 Drisdol - PO 50,000 unit Mo@1000 CH[facility]QUI Administration Eucalyptus/Menthol/Phenol/Sorbitol 1 each 09/24/16 13:25 Cepastat Lozenge - MM Q4H PRN SORE THROAT Guaifenesin 10 ml 09/24/16 13:25 Robitussin Dm - PO Q6H PRN COUGH Hydrochlorothiazide 25 mg 09/25/16 14:29 10/02/16 10:00 Hctz - PO 25 mg DAILY CHIQUI Administration Ibuprofen 400 mg 09/24/16 13:25 10/02/16 05:52 Motrin - PO 400 mg Q6H PRN Administration PAIN Loperamide HCl 4 mg 09/24/16 13:25 Imodium - PO Q6H PRN DIARRHEA Magnesium Hydroxide 30 ml 09/24/16 13:25 10/01/16 10:34 Milk Of Magnesia - PO 30 ml DAILY PRN Administration CONSTIPATION Nicotine 21 mg 09/25/16 10:00 10/02/16 10:01 Nicoderm Patch - TD 21 mg DAILY [facility]I Administration Nicotine Polacrilex 2 mg 09/24/16 13:25 10/02/16 10:02 Nicorette Gum - BUC 2 mg Q2H PRN Administration NICOTINE REPLACEMENT RX Multivit/Folic Acid/Iron 1 tab 09/25/16 10:00 10/02/16 10:00 Vitamins (Sjr) - PO 1 tab DAILY CHIQUI Administration Pseudoephedrine/Triprolidine 1 combo 09/24/16 13:25 Actifed - PO TID PRN NASAL CONGESTION Quetiapine Fumarate 50 mg 09/24/16 22:00 10/02/16 10:00 Seroquel - PO 50 mg BID CHIQUI Administration Ritonavir 100 mg 09/25/16 14:19 10/02/16 10:02 Norvir - PO 100 mg DAILY [facility]I Administration Simethicone 80 mg 09/26/16 22:02 Mylicon - PO QID PRN GAS Thiamine HCl 100 mg 09/24/16 22:00 10/01/16 21:09 Vitamin B1 - PO 100 mg HS [facility]I Administration Trazodone HCl 200 mg 09/24/16 22:00 10/01/16 21:10 Desyrel - PO 200 mg HS [facility]I Administration Current Side Effect: No Lab tests ordered: Yes Lab tests reviewed: Yes Provider note:: Patient reports experiencing difficulty to sleep. Told advertising copy writer that he has been sleeping poorly despite taking Trazadone 200 mg po HS. Requests to have an increase in medication dosage Total face to face time:: 25 Mental Status Exam - Mental Status Exam Alert and Oriented to: Time, Place, Person Cognitive Function: Fair Patient Appearance: Well Groomed Mood: Hopeful, Euthymic Affect: Appropriate Patient Behavior: Cooperative Speech Pattern: Clear Voice Loudness: Normal Thought Process: Intact Thought Disorder: Not Present Hallucinations: Denies Suicidal Ideation: Denies Homicidal Ideation: Denies Insight/Judgement: Fair Sleep: Poorly Appetite: Good Muscle strength/Tone: Normal Gait/Station: Normal Psychiatric Treatment Plan - Problem List (1) Alcohol dependence Current Visit: No (2) Cocaine dependence Current Visit: No Qualifiers: Substance use status: uncomplicated Qualified Code(s): F14.20 - Cocaine dependence, uncomplicated (3) Cannabis dependence, uncomplicated Current Visit: No (4) Nicotine dependence Current Visit: Yes (5) MDD (major depressive disorder) Current Visit: Yes (6) Arthritis Current Visit: No (7) Essential hypertension Current Visit: No (8) Peripheral neuropathy Current Visit: No (9) AIDS (acquired immune deficiency syndrome) Current Visit: No Initial treatment plan: 1) Discontinue Trazadone 100 mg po HS. 2) Start Trazadone 300 mg po HS for insomnia. 3) Monitor progress
[2016-10-02] MEDS: ATORVASTATIN CA 20 MG TABLET (FP) PO SCH (21:21)
[2016-10-02] MEDS: THIAMINE HCL 100 MG TABLET (FP) PO SCH (21:21)
[2016-10-02] MEDS: traZODone HCL 100 MG TABLET (FP) PO SCH (21:21)
[2016-10-03] MEDS: IBUPROFEN 400 MG TABLET (FP) PO PRN (05:39)
[2016-10-03] MEDS ORDERED: PT OWN MED DRAWER 7, Y5N ONE (08:50)
[2016-10-03] MEDS: PRENATAL VITAMINS W/ FOLIC ACID TABLET (FP) PO SCH (10:32)
[2016-10-03] MEDS: amLODIPine BESYLATE 10 MG TABLET (FP) PO SCH (10:32)
[2016-10-03] MEDS: ASPIRIN COATED 81 MG TABLET.EC PO SCH (10:32)
[2016-10-03] MEDS: QUEtiapine FUMARATE 50 MG TABLET PO SCH ×2 (10:32→21:15)
[2016-10-03] MEDS: HYDROCHLOROTHIAZIDE 25 MG TABLET (FP) PO SCH (10:32)
[2016-10-03] MEDS: EMTRICITABINE 200MG/TENOFOVIR 300MG PO SCH (10:32)
[2016-10-03] MEDS: DARUNAVIR ETHANOLATE 800 MG TAB PO SCH (10:32)
[2016-10-03] MEDS: RITONAVIR 100 MG TABLET PO SCH (10:33)
[2016-10-03] MEDS: NICOTINE 21 MG/24 HOURS TOPICAL PATCH TD SCH (10:33)
[2016-10-03] MEDS: diphenhydrAMINE HCL 50 MG CAPSULE PO PRN (21:15)
[2016-10-03] MEDS: THIAMINE HCL 100 MG TABLET (FP) PO SCH (21:15)
[2016-10-03] MEDS: traZODone HCL 100 MG TABLET (FP) PO SCH (21:15)
[2016-10-03] MEDS: ATORVASTATIN CA 20 MG TABLET (FP) PO SCH (21:15)
[2016-10-04] MEDS ORDERED: PT OWN MED DRAWER 7, Y5N ONE (09:13)
[2016-10-04] MEDS: PRENATAL VITAMINS W/ FOLIC ACID TABLET (FP) PO SCH (10:11)
[2016-10-04] MEDS: RITONAVIR 100 MG TABLET PO SCH (10:11)
[2016-10-04] MEDS: QUEtiapine FUMARATE 50 MG TABLET PO SCH ×2 (10:11→21:19)
[2016-10-04] MEDS: EMTRICITABINE 200MG/TENOFOVIR 300MG PO SCH (10:11)
[2016-10-04] MEDS: ASPIRIN COATED 81 MG TABLET.EC PO SCH (10:11)
[2016-10-04] MEDS: NICOTINE 21 MG/24 HOURS TOPICAL PATCH TD SCH (10:11)
[2016-10-04] MEDS: amLODIPine BESYLATE 10 MG TABLET (FP) PO SCH (10:11)
[2016-10-04] MEDS: ACETAMINOPHEN 325 MG TABLET (FP) PO PRN ×2 (10:12→20:14)
[2016-10-04] MEDS: HYDROCHLOROTHIAZIDE 25 MG TABLET (FP) PO SCH (10:12)
[2016-10-04] MEDS: DARUNAVIR ETHANOLATE 800 MG TAB PO SCH (10:12)
[2016-10-04] MEDS: diphenhydrAMINE HCL 50 MG CAPSULE PO PRN (21:19)
[2016-10-04] MEDS: THIAMINE HCL 100 MG TABLET (FP) PO SCH (21:19)
[2016-10-04] MEDS: traZODone HCL 100 MG TABLET (FP) PO SCH (21:20)
[2016-10-04] MEDS: ATORVASTATIN CA 20 MG TABLET (FP) PO SCH (21:20)
[2016-10-04] MEDS: MAGNESIUM CITRATE 300 ML BOTTLE PO PRN (22:01)
[2016-10-05] MEDS: ACETAMINOPHEN 325 MG TABLET (FP) PO PRN (06:06)
[2016-10-05] MEDS: PRENATAL VITAMINS W/ FOLIC ACID TABLET (FP) PO SCH (10:08)
[2016-10-05] MEDS: RITONAVIR 100 MG TABLET PO SCH (10:08)
[2016-10-05] MEDS: EMTRICITABINE 200MG/TENOFOVIR 300MG PO SCH (10:08)
[2016-10-05] MEDS: QUEtiapine FUMARATE 50 MG TABLET PO SCH ×2 (10:09→21:04)
[2016-10-05] MEDS: HYDROCHLOROTHIAZIDE 25 MG TABLET (FP) PO SCH (10:09)
[2016-10-05] MEDS: DARUNAVIR ETHANOLATE 800 MG TAB PO SCH (10:09)
[2016-10-05] MEDS: NICOTINE 21 MG/24 HOURS TOPICAL PATCH TD SCH (10:09)
[2016-10-05] MEDS: ASPIRIN COATED 81 MG TABLET.EC PO SCH (10:09)
[2016-10-05] MEDS: amLODIPine BESYLATE 10 MG TABLET (FP) PO SCH (10:09)
[2016-10-05] MEDS: MAGNESIUM HYDROX 2400MG/30ML ORAL SUSPENSION 30 ML CUP PO PRN (11:01)
[2016-10-05] MEDS ORDERED: PENICILLIN G BENZATHINE 2,400,000 UNIT/4 ML PFS IM ONE ×2 (13:50→13:52)
[2016-10-05] MEDS ORDERED: LIDOCAINE 5% TOPICAL PATCH TP ONE (13:55)
[2016-10-05] MEDS: THIAMINE HCL 100 MG TABLET (FP) PO SCH (21:03)
[2016-10-05] MEDS: traZODone HCL 100 MG TABLET (FP) PO SCH (21:03)
[2016-10-05] MEDS: HYDROCORTISONE 1% TOPICAL CREAM 30 GM TUBE TP PRN (21:04)
[2016-10-05] MEDS: ATORVASTATIN CA 20 MG TABLET (FP) PO SCH (21:04)
[2016-10-05] MEDS: diphenhydrAMINE HCL 50 MG CAPSULE PO PRN (21:05)
[2016-10-05] MEDS ORDERED: FLUOCINONIDE 0.05% CREAM (15 GM TUBE) TP SCH (22:00)
[2016-10-06] MEDS: ACETAMINOPHEN 325 MG TABLET (FP) PO PRN (04:58)
[2016-10-06] MEDS: diphenhydrAMINE HCL 25 MG CAPSULE (FP) PO PRN ×2 (06:11→21:45)
[2016-10-06] MEDS ORDERED: PT OWN MED DRAWER 7, Y5N ONE (08:56)
[2016-10-06] MEDS: NICOTINE 21 MG/24 HOURS TOPICAL PATCH TD SCH (10:24)
[2016-10-06] MEDS: PRENATAL VITAMINS W/ FOLIC ACID TABLET (FP) PO SCH (10:24)
[2016-10-06] MEDS: HYDROCHLOROTHIAZIDE 25 MG TABLET (FP) PO SCH (10:24)
[2016-10-06] MEDS: ASPIRIN COATED 81 MG TABLET.EC PO SCH (10:24)
[2016-10-06] MEDS: amLODIPine BESYLATE 10 MG TABLET (FP) PO SCH (10:24)
[2016-10-06] MEDS: QUEtiapine FUMARATE 50 MG TABLET PO SCH ×2 (10:24→21:44)
[2016-10-06] MEDS: DARUNAVIR ETHANOLATE 800 MG TAB PO SCH (10:25)
[2016-10-06] MEDS: RITONAVIR 100 MG TABLET PO SCH (10:25)
[2016-10-06] MEDS: EMTRICITABINE 200MG/TENOFOVIR 300MG PO SCH (10:25)
[2016-10-06] MEDS: LIDOCAINE 5% TOPICAL PATCH TP SCH (10:28)
[2016-10-06] MEDS: MAGNESIUM HYDROX 2400MG/30ML ORAL SUSPENSION 30 ML CUP PO PRN (10:40)
[2016-10-06] MEDS: MENTHOL/PHENOL 1 EACH UD MM PRN (15:38)
[2016-10-06] MEDS: traZODone HCL 100 MG TABLET (FP) PO SCH (21:44)
[2016-10-06] MEDS: THIAMINE HCL 100 MG TABLET (FP) PO SCH (21:44)
[2016-10-06] MEDS: ATORVASTATIN CA 20 MG TABLET (FP) PO SCH (21:45)
[2016-10-06] MEDS: HYDROCORTISONE 1% TOPICAL CREAM 30 GM TUBE TP PRN (21:46)
[2016-10-07] MEDS: ACETAMINOPHEN 325 MG TABLET (FP) PO PRN (06:38)
[2016-10-07] MEDS: diphenhydrAMINE HCL 25 MG CAPSULE (FP) PO PRN (06:38)
[2016-10-07] MEDS ORDERED: PT OWN MED DRAWER 7, Y5N ONE (09:15)
[2016-10-07] MEDS ORDERED: MAGNESIUM CITRATE 300 ML BOTTLE PO ONE (10:15)
[2016-10-07] MEDS: EMTRICITABINE 200MG/TENOFOVIR 300MG PO SCH (10:33)
[2016-10-07] MEDS: LIDOCAINE 5% TOPICAL PATCH TP SCH (10:33)
[2016-10-07] MEDS: PRENATAL VITAMINS W/ FOLIC ACID TABLET (FP) PO SCH (10:34)
[2016-10-07] MEDS: HYDROCHLOROTHIAZIDE 25 MG TABLET (FP) PO SCH (10:34)
[2016-10-07] MEDS: NICOTINE 21 MG/24 HOURS TOPICAL PATCH TD SCH (10:34)
[2016-10-07] MEDS: RITONAVIR 100 MG TABLET PO SCH (10:34)
[2016-10-07] MEDS: DARUNAVIR ETHANOLATE 800 MG TAB PO SCH (10:34)
[2016-10-07] MEDS: amLODIPine BESYLATE 10 MG TABLET (FP) PO SCH (10:34)
[2016-10-07] MEDS: QUEtiapine FUMARATE 50 MG TABLET PO SCH ×2 (10:34→21:05)
[2016-10-07] MEDS: ASPIRIN COATED 81 MG TABLET.EC PO SCH (10:34)
[2016-10-07] MEDS: traZODone HCL 100 MG TABLET (FP) PO SCH (21:04)
[2016-10-07] MEDS: THIAMINE HCL 100 MG TABLET (FP) PO SCH (21:04)
[2016-10-07] MEDS: ATORVASTATIN CA 20 MG TABLET (FP) PO SCH (21:04)
[2016-10-07] MEDS: diphenhydrAMINE HCL 50 MG CAPSULE PO PRN (21:05)
[2016-10-08] MEDS: IBUPROFEN 400 MG TABLET (FP) PO PRN (06:10)
[2016-10-08] MEDS: diphenhydrAMINE HCL 25 MG CAPSULE (FP) PO PRN (06:11)
[2016-10-08] MEDS ORDERED: PT OWN MED DRAWER 7, Y5N ONE ×2 (08:53→11:34)
[2016-10-08] MEDS: EMTRICITABINE 200MG/TENOFOVIR 300MG PO SCH (10:20)
[2016-10-08] MEDS: DARUNAVIR ETHANOLATE 800 MG TAB PO SCH (10:20)
[2016-10-08] MEDS: amLODIPine BESYLATE 10 MG TABLET (FP) PO SCH (10:20)
[2016-10-08] MEDS: ASPIRIN COATED 81 MG TABLET.EC PO SCH (10:20)
[2016-10-08] MEDS: RITONAVIR 100 MG TABLET PO SCH (10:20)
[2016-10-08] MEDS: HYDROCHLOROTHIAZIDE 25 MG TABLET (FP) PO SCH (10:20)
[2016-10-08] MEDS: NICOTINE 21 MG/24 HOURS TOPICAL PATCH TD SCH (10:21)
[2016-10-08] MEDS: LIDOCAINE 5% TOPICAL PATCH TP SCH (10:21)
[2016-10-08] MEDS: PRENATAL VITAMINS W/ FOLIC ACID TABLET (FP) PO SCH (10:21)
[2016-10-08] MEDS: QUEtiapine FUMARATE 50 MG TABLET PO SCH ×2 (10:21→21:06)
[2016-10-08] MEDS: THIAMINE HCL 100 MG TABLET (FP) PO SCH (21:06)
[2016-10-08] MEDS: diphenhydrAMINE HCL 50 MG CAPSULE PO PRN (21:06)
[2016-10-08] MEDS: traZODone HCL 100 MG TABLET (FP) PO SCH (21:06)
[2016-10-08] MEDS: ATORVASTATIN CA 20 MG TABLET (FP) PO SCH (21:06)
[2016-10-09] MEDS: ACETAMINOPHEN 325 MG TABLET (FP) PO PRN (06:13)
[2016-10-09] MEDS: diphenhydrAMINE HCL 25 MG CAPSULE (FP) PO PRN ×2 (06:13→13:53)
[2016-10-09] MEDS: HYDROCORTISONE 1% TOPICAL CREAM 30 GM TUBE TP PRN (06:14)
[2016-10-09] MEDS ORDERED: PT OWN MED DRAWER 7, Y5N ONE ×2 (09:01→11:16)
[2016-10-09] MEDS: HYDROCHLOROTHIAZIDE 25 MG TABLET (FP) PO SCH (10:29)
[2016-10-09] MEDS: QUEtiapine FUMARATE 50 MG TABLET PO SCH ×2 (10:29→21:13)
[2016-10-09] MEDS: ASPIRIN COATED 81 MG TABLET.EC PO SCH (10:29)
[2016-10-09] MEDS: amLODIPine BESYLATE 10 MG TABLET (FP) PO SCH (10:29)
[2016-10-09] MEDS: PRENATAL VITAMINS W/ FOLIC ACID TABLET (FP) PO SCH (10:29)
[2016-10-09] MEDS: RITONAVIR 100 MG TABLET PO SCH (10:30)
[2016-10-09] MEDS: EMTRICITABINE 200MG/TENOFOVIR 300MG PO SCH (10:30)
[2016-10-09] MEDS: DARUNAVIR ETHANOLATE 800 MG TAB PO SCH (10:31)
[2016-10-09] MEDS: NICOTINE 21 MG/24 HOURS TOPICAL PATCH TD SCH (10:32)
[2016-10-09] MEDS: LIDOCAINE 5% TOPICAL PATCH TP SCH (10:33)
[2016-10-09] MEDS: ERGOCALCIFEROL (VITAMIN D2) 50,000 UNIT CAPSULE (FP) PO SCH (10:53)
[2016-10-09] MEDS: THIAMINE HCL 100 MG TABLET (FP) PO SCH (21:12)
[2016-10-09] MEDS: traZODone HCL 100 MG TABLET (FP) PO SCH (21:12)
[2016-10-09] MEDS: ATORVASTATIN CA 20 MG TABLET (FP) PO SCH (21:13)
[2016-10-09] MEDS: diphenhydrAMINE HCL 50 MG CAPSULE PO PRN (21:14)
[2016-10-10] MEDS: diphenhydrAMINE HCL 25 MG CAPSULE (FP) PO PRN ×2 (06:10→12:38)
[2016-10-10] MEDS: IBUPROFEN 400 MG TABLET (FP) PO PRN (06:10)
[2016-10-10] MEDS: HYDROCORTISONE 1% TOPICAL CREAM 30 GM TUBE TP PRN (06:11)
[2016-10-10] MEDS ORDERED: PT OWN MED DRAWER 7, Y5N ONE ×3 (09:00→21:19)
[2016-10-10] MEDS: QUEtiapine FUMARATE 50 MG TABLET PO SCH ×2 (10:14→21:18)
[2016-10-10] MEDS: amLODIPine BESYLATE 10 MG TABLET (FP) PO SCH (10:15)
[2016-10-10] MEDS: ASPIRIN COATED 81 MG TABLET.EC PO SCH (10:15)
[2016-10-10] MEDS: HYDROCHLOROTHIAZIDE 25 MG TABLET (FP) PO SCH (10:15)
[2016-10-10] MEDS: EMTRICITABINE 200MG/TENOFOVIR 300MG PO SCH (10:16)
[2016-10-10] MEDS: DARUNAVIR ETHANOLATE 800 MG TAB PO SCH (10:16)
[2016-10-10] MEDS: PRENATAL VITAMINS W/ FOLIC ACID TABLET (FP) PO SCH (10:16)
[2016-10-10] MEDS: RITONAVIR 100 MG TABLET PO SCH (10:16)
[2016-10-10] MEDS: NICOTINE 21 MG/24 HOURS TOPICAL PATCH TD SCH (10:18)
[2016-10-10] MEDS: LIDOCAINE 5% TOPICAL PATCH TP SCH (10:19)
[2016-10-10] MEDS: NAPHAZOLINE/PHENIRAMINE OPHTHALMIC 15 ML BOTTLE OU PRN ×2 (16:31→21:19)
[2016-10-10] MEDS: THIAMINE HCL 100 MG TABLET (FP) PO SCH (21:17)
[2016-10-10] MEDS: traZODone HCL 100 MG TABLET (FP) PO SCH (21:17)
[2016-10-10] MEDS: ATORVASTATIN CA 20 MG TABLET (FP) PO SCH (21:18)
[2016-10-10] MEDS: diphenhydrAMINE HCL 50 MG CAPSULE PO PRN (21:18)
[2016-10-10] MEDS: MAGNESIUM HYDROX 2400MG/30ML ORAL SUSPENSION 30 ML CUP PO PRN (21:19)
[2016-10-11] MEDS: NAPHAZOLINE/PHENIRAMINE OPHTHALMIC 15 ML BOTTLE OU PRN ×2 (06:34→21:07)
[2016-10-11] MEDS: IBUPROFEN 400 MG TABLET (FP) PO PRN (06:35)
[2016-10-11] MEDS: diphenhydrAMINE HCL 25 MG CAPSULE (FP) PO PRN (06:35)
[2016-10-11] MEDS ORDERED: PT OWN MED DRAWER 7, Y5N ONE ×2 (09:06→21:06)
[2016-10-11] MEDS: ASPIRIN COATED 81 MG TABLET.EC PO SCH (10:20)
[2016-10-11] MEDS: PRENATAL VITAMINS W/ FOLIC ACID TABLET (FP) PO SCH (10:20)
[2016-10-11] MEDS: QUEtiapine FUMARATE 50 MG TABLET PO SCH ×2 (10:20→21:04)
[2016-10-11] MEDS: NICOTINE 21 MG/24 HOURS TOPICAL PATCH TD SCH (10:21)
[2016-10-11] MEDS: HYDROCHLOROTHIAZIDE 25 MG TABLET (FP) PO SCH (10:21)
[2016-10-11] MEDS: DARUNAVIR ETHANOLATE 800 MG TAB PO SCH (10:21)
[2016-10-11] MEDS: amLODIPine BESYLATE 10 MG TABLET (FP) PO SCH (10:21)
[2016-10-11] MEDS: RITONAVIR 100 MG TABLET PO SCH (10:21)
[2016-10-11] MEDS: EMTRICITABINE 200MG/TENOFOVIR 300MG PO SCH (11:00)
[2016-10-11] MEDS: LIDOCAINE 5% TOPICAL PATCH TP SCH (11:45)
[2016-10-11] MEDS: THIAMINE HCL 100 MG TABLET (FP) PO SCH (21:04)
[2016-10-11] MEDS: ATORVASTATIN CA 20 MG TABLET (FP) PO SCH (21:04)
[2016-10-11] MEDS: traZODone HCL 100 MG TABLET (FP) PO SCH (21:04)
[2016-10-11] MEDS: diphenhydrAMINE HCL 50 MG CAPSULE PO PRN (21:07)
[2016-10-12] MEDS ORDERED: PT OWN MED DRAWER 7, Y5N ONE ×4 (06:28→21:06)
[2016-10-12] MEDS: IBUPROFEN 400 MG TABLET (FP) PO PRN (06:28)
[2016-10-12] MEDS: diphenhydrAMINE HCL 25 MG CAPSULE (FP) PO PRN (06:28)
[2016-10-12] MEDS: NAPHAZOLINE/PHENIRAMINE OPHTHALMIC 15 ML BOTTLE OU PRN ×3 (06:30→21:06)
[2016-10-12] MEDS ORDERED: PENICILLIN G BENZATHINE 2,400,000 UNIT/4 ML PFS IM ONE (08:00)
[2016-10-12] MEDS: HYDROCHLOROTHIAZIDE 25 MG TABLET (FP) PO SCH (10:06)
[2016-10-12] MEDS: PRENATAL VITAMINS W/ FOLIC ACID TABLET (FP) PO SCH (10:06)
[2016-10-12] MEDS: EMTRICITABINE 200MG/TENOFOVIR 300MG PO SCH (10:06)
[2016-10-12] MEDS: amLODIPine BESYLATE 10 MG TABLET (FP) PO SCH (10:06)
[2016-10-12] MEDS: LIDOCAINE 5% TOPICAL PATCH TP SCH (10:07)
[2016-10-12] MEDS: DARUNAVIR ETHANOLATE 800 MG TAB PO SCH (10:07)
[2016-10-12] MEDS: ASPIRIN COATED 81 MG TABLET.EC PO SCH (10:07)
[2016-10-12] MEDS: QUEtiapine FUMARATE 50 MG TABLET PO SCH ×2 (10:07→21:05)
[2016-10-12] MEDS: NICOTINE 21 MG/24 HOURS TOPICAL PATCH TD SCH (10:07)
[2016-10-12] MEDS: RITONAVIR 100 MG TABLET PO SCH (10:26)
[2016-10-12] MEDS: ATORVASTATIN CA 20 MG TABLET (FP) PO SCH (21:04)
[2016-10-12] MEDS: traZODone HCL 100 MG TABLET (FP) PO SCH (21:04)
[2016-10-12] MEDS: THIAMINE HCL 100 MG TABLET (FP) PO SCH (21:05)
[2016-10-12] MEDS: diphenhydrAMINE HCL 50 MG CAPSULE PO PRN (21:05)
[2016-10-13] MEDS: NAPHAZOLINE/PHENIRAMINE OPHTHALMIC 15 ML BOTTLE OU PRN (06:03)
[2016-10-13] MEDS: diphenhydrAMINE HCL 25 MG CAPSULE (FP) PO PRN ×2 (06:04→11:06)
[2016-10-13] MEDS: ACETAMINOPHEN 325 MG TABLET (FP) PO PRN (06:04)
[2016-10-13] MEDS ORDERED: PT OWN MED DRAWER 7, Y5N ONE ×2 (09:09→21:02)
[2016-10-13] MEDS: LIDOCAINE 5% TOPICAL PATCH TP SCH (10:07)
[2016-10-13] MEDS: HYDROCHLOROTHIAZIDE 25 MG TABLET (FP) PO SCH (10:46)
[2016-10-13] MEDS: ASPIRIN COATED 81 MG TABLET.EC PO SCH (10:46)
[2016-10-13] MEDS: QUEtiapine FUMARATE 50 MG TABLET PO SCH ×2 (10:46→21:02)
[2016-10-13] MEDS: amLODIPine BESYLATE 10 MG TABLET (FP) PO SCH (10:46)
[2016-10-13] MEDS: RITONAVIR 100 MG TABLET PO SCH (10:46)
[2016-10-13] MEDS: EMTRICITABINE 200MG/TENOFOVIR 300MG PO SCH (10:46)
[2016-10-13] MEDS: PRENATAL VITAMINS W/ FOLIC ACID TABLET (FP) PO SCH (10:46)
[2016-10-13] MEDS: DARUNAVIR ETHANOLATE 800 MG TAB PO SCH (10:46)
[2016-10-13] MEDS: NICOTINE 21 MG/24 HOURS TOPICAL PATCH TD SCH (10:47)
[2016-10-13] MEDS: FLUTICASONE PROP 0.05% 16 GM NASAL SPRAY NS SCH ×2 (13:07→21:03)
[2016-10-13] MEDS: MAGNESIUM HYDROX 2400MG/30ML ORAL SUSPENSION 30 ML CUP PO PRN (13:51)
[2016-10-13] MEDS: traZODone HCL 100 MG TABLET (FP) PO SCH (21:01)
[2016-10-13] MEDS: THIAMINE HCL 100 MG TABLET (FP) PO SCH (21:01)
[2016-10-13] MEDS: ATORVASTATIN CA 20 MG TABLET (FP) PO SCH (21:01)
[2016-10-13] MEDS: diphenhydrAMINE HCL 50 MG CAPSULE PO PRN (21:02)
[2016-10-13] MEDS: MENTHOL/PHENOL 1 EACH UD MM PRN (21:03)
[2016-10-13] MEDS: HYDROCORTISONE 1% TOPICAL CREAM 30 GM TUBE TP PRN (21:03)
[2016-10-14] MEDS: diphenhydrAMINE HCL 25 MG CAPSULE (FP) PO PRN (06:54)
[2016-10-14] MEDS: ACETAMINOPHEN 325 MG TABLET (FP) PO PRN (06:54)
[2016-10-14] MEDS: NAPHAZOLINE/PHENIRAMINE OPHTHALMIC 15 ML BOTTLE OU PRN (06:54)
[2016-10-14] MEDS ORDERED: PT OWN MED DRAWER 7, Y5N ONE (08:57)
[2016-10-14] MEDS: FLUTICASONE PROP 0.05% 16 GM NASAL SPRAY NS SCH ×2 (10:25→21:07)
[2016-10-14] MEDS: amLODIPine BESYLATE 10 MG TABLET (FP) PO SCH (10:25)
[2016-10-14] MEDS: QUEtiapine FUMARATE 50 MG TABLET PO SCH ×2 (10:25→21:05)
[2016-10-14] MEDS: PRENATAL VITAMINS W/ FOLIC ACID TABLET (FP) PO SCH (10:25)
[2016-10-14] MEDS: HYDROCHLOROTHIAZIDE 25 MG TABLET (FP) PO SCH (10:25)
[2016-10-14] MEDS: ASPIRIN COATED 81 MG TABLET.EC PO SCH (10:25)
[2016-10-14] MEDS: EMTRICITABINE 200MG/TENOFOVIR 300MG PO SCH (10:26)
[2016-10-14] MEDS: DARUNAVIR ETHANOLATE 800 MG TAB PO SCH (10:26)
[2016-10-14] MEDS: RITONAVIR 100 MG TABLET PO SCH (10:26)
[2016-10-14] MEDS: NICOTINE 21 MG/24 HOURS TOPICAL PATCH TD SCH (10:28)
[2016-10-14] MEDS: LIDOCAINE 5% TOPICAL PATCH TP SCH (10:30)
[2016-10-14] MEDS: MAGNESIUM HYDROX 2400MG/30ML ORAL SUSPENSION 30 ML CUP PO PRN (10:31)
[2016-10-14] MEDS: ATORVASTATIN CA 20 MG TABLET (FP) PO SCH (21:05)
[2016-10-14] MEDS: THIAMINE HCL 100 MG TABLET (FP) PO SCH (21:05)
[2016-10-14] MEDS: diphenhydrAMINE HCL 50 MG CAPSULE PO PRN (21:05)
[2016-10-14] MEDS: traZODone HCL 100 MG TABLET (FP) PO SCH (21:05)
[2016-10-15] MEDS: NAPHAZOLINE/PHENIRAMINE OPHTHALMIC 15 ML BOTTLE OU PRN ×2 (06:09→19:26)
[2016-10-15] MEDS: IBUPROFEN 400 MG TABLET (FP) PO PRN (06:10)
[2016-10-15] MEDS: diphenhydrAMINE HCL 25 MG CAPSULE (FP) PO PRN ×2 (06:10→14:42)
[2016-10-15] MEDS ORDERED: PT OWN MED DRAWER 7, Y5N ONE ×2 (09:17→19:26)
[2016-10-15] MEDS: PRENATAL VITAMINS W/ FOLIC ACID TABLET (FP) PO SCH (10:29)
[2016-10-15] MEDS: ASPIRIN COATED 81 MG TABLET.EC PO SCH (10:29)
[2016-10-15] MEDS: HYDROCHLOROTHIAZIDE 25 MG TABLET (FP) PO SCH (10:29)
[2016-10-15] MEDS: amLODIPine BESYLATE 10 MG TABLET (FP) PO SCH (10:29)
[2016-10-15] MEDS: RITONAVIR 100 MG TABLET PO SCH (10:30)
[2016-10-15] MEDS: EMTRICITABINE 200MG/TENOFOVIR 300MG PO SCH (10:30)
[2016-10-15] MEDS: QUEtiapine FUMARATE 50 MG TABLET PO SCH ×2 (10:30→21:08)
[2016-10-15] MEDS: DARUNAVIR ETHANOLATE 800 MG TAB PO SCH (10:30)
[2016-10-15] MEDS: NICOTINE 21 MG/24 HOURS TOPICAL PATCH TD SCH (10:35)
[2016-10-15] MEDS: FLUTICASONE PROP 0.05% 16 GM NASAL SPRAY NS SCH ×2 (10:36→21:08)
[2016-10-15] MEDS: LIDOCAINE 5% TOPICAL PATCH TP SCH (10:36)
[2016-10-15] MEDS: MAGNESIUM CITRATE 300 ML BOTTLE PO PRN (10:54)
[2016-10-15] MEDS ORDERED: traZODone HCL 50 MG TABLET (FP) ONE (19:57)
[2016-10-15] MEDS: THIAMINE HCL 100 MG TABLET (FP) PO SCH (21:06)
[2016-10-15] MEDS: ATORVASTATIN CA 20 MG TABLET (FP) PO SCH (21:06)
[2016-10-15] MEDS: diphenhydrAMINE HCL 50 MG CAPSULE PO PRN (21:06)
[2016-10-15] MEDS: traZODone HCL 100 MG TABLET (FP) PO SCH (21:08)
[2016-10-16] MEDS: IBUPROFEN 400 MG TABLET (FP) PO PRN (06:02)
[2016-10-16] MEDS: guaiFENesin/D-METHORPHAN HB 10 ML UNIT-DOSE CUPS PO PRN (06:03)
[2016-10-16] MEDS: diphenhydrAMINE HCL 25 MG CAPSULE (FP) PO PRN ×2 (06:03→11:35)
[2016-10-16] MEDS ORDERED: PT OWN MED DRAWER 7, Y5N ONE ×4 (07:06→21:11)
[2016-10-16] MEDS: NAPHAZOLINE/PHENIRAMINE OPHTHALMIC 15 ML BOTTLE OU PRN ×2 (07:07→10:37)
[2016-10-16] MEDS: PRENATAL VITAMINS W/ FOLIC ACID TABLET (FP) PO SCH (10:31)
[2016-10-16] MEDS: HYDROCHLOROTHIAZIDE 25 MG TABLET (FP) PO SCH (10:32)
[2016-10-16] MEDS: RITONAVIR 100 MG TABLET PO SCH (10:32)
[2016-10-16] MEDS: LIDOCAINE 5% TOPICAL PATCH TP SCH (10:32)
[2016-10-16] MEDS: NICOTINE 21 MG/24 HOURS TOPICAL PATCH TD SCH (10:32)
[2016-10-16] MEDS: DARUNAVIR ETHANOLATE 800 MG TAB PO SCH (10:32)
[2016-10-16] MEDS: QUEtiapine FUMARATE 50 MG TABLET PO SCH ×2 (10:32→21:13)
[2016-10-16] MEDS: amLODIPine BESYLATE 10 MG TABLET (FP) PO SCH (10:32)
[2016-10-16] MEDS: ASPIRIN COATED 81 MG TABLET.EC PO SCH (10:32)
[2016-10-16] MEDS: EMTRICITABINE 200MG/TENOFOVIR 300MG PO SCH (10:32)
[2016-10-16] MEDS: FLUTICASONE PROP 0.05% 16 GM NASAL SPRAY NS SCH ×2 (10:33→21:12)
[2016-10-16] MEDS: ERGOCALCIFEROL (VITAMIN D2) 50,000 UNIT CAPSULE (FP) PO SCH (10:34)
[2016-10-16] MEDS ORDERED: POLYETHYLENE GLYCOL 3350 119 GM BTL PO ONE (14:45)
[2016-10-16] MEDS: ATORVASTATIN CA 20 MG TABLET (FP) PO SCH (21:13)
[2016-10-16] MEDS: THIAMINE HCL 100 MG TABLET (FP) PO SCH (21:13)
[2016-10-16] MEDS: diphenhydrAMINE HCL 50 MG CAPSULE PO PRN (21:13)
[2016-10-16] MEDS: HYDROCORTISONE 1% TOPICAL CREAM 30 GM TUBE TP PRN (21:13)
[2016-10-16] MEDS: traZODone HCL 100 MG TABLET (FP) PO SCH (21:13)
[2016-10-17] MEDS: IBUPROFEN 400 MG TABLET (FP) PO PRN (06:07)
[2016-10-17] MEDS: diphenhydrAMINE HCL 25 MG CAPSULE (FP) PO PRN (06:07)
[2016-10-17] MEDS: NAPHAZOLINE/PHENIRAMINE OPHTHALMIC 15 ML BOTTLE OU PRN ×2 (06:07→21:09)
--- NOTE | 2016-10-17 07:43 | PN ---
Psychiatric Progress Note Vital Signs: Vital Signs Period Temp Pulse Resp BP Sys/Valencia Pulse Ox Last 24 Hr 97.8 F 88-90 18-20 135-138/73-79 Date of Session: 10/17/16 Chief Complaint:: Discharge Note HPI: Patient addressing Alcohol, Cocaine and Cannabis Dependence comorbid with Nicotine Dependence and Major Depressive Disorder ROS: HTN, AIDS, Peripheral Neuropathy and Arthritis were medically managed Current Medications: Active Medications Generic Name Dose Route Start Last Admin Trade Name Freq PRN Reason Stop Dose Admin Acetaminophen 650 mg 09/24/16 13:25 10/14/16 06:54 Tylenol - PO 650 mg Q4H PRN Administration FEVER OR PAIN Al Hydroxide/Mg Hydroxide 30 ml 09/24/16 13:25 10/15/16 10:33 Mylanta Oral Suspension - PO 30 ml Q6H PRN Administration DYSPEPSIA Amlodipine Besylate 10 mg 09/25/16 14:24 10/16/16 10:32 Norvasc - PO 10 mg DAILY CHIQUI Administration Aspirin 81 mg 09/25/16 14:27 10/16/16 10:32 Ecotrin - PO 81 mg DAILY [facility]IQUI Administration Atorvastatin Calcium 20 mg 09/25/16 22:00 10/16/16 21:13 Lipitor - PO 20 mg HS [facility]IQUI Administration Bupropion HCl 450 mg 09/26/16 10:00 10/16/16 10:35 Wellbutrin Xl - PO 450 mg DAILY CHIQUI Administration Darunavir 800 mg 09/26/16 10:00 10/16/16 10:32 Prezista - PO 800 mg DAILY [facility]I Administration Diphenhydramine HCl 50 mg 09/24/16 13:25 10/16/16 21:13 Benadryl - PO 50 mg HSMR1 PRN Administration FOR ITCHING Diphenhydramine HCl 25 mg 10/01/16 13:06 10/17/16 06:07 Benadryl - PO 25 mg Q6H PRN Administration FOR ITCHING Emtricitabine/Tenofovir 1 tab 09/25/16 14:17 10/16/16 10:32 Truvada PO 1 tab DAILY [facility]QUI Administration Ergocalciferol 50,000 unit 10/02/16 10:00 10/16/16 10:34 Drisdol - PO 50,000 unit Mo@1000 [facility]I Administration Eucalyptus/Menthol/Phenol/Sorbitol 1 each 09/24/16 13:25 10/13/16 21:03 Cepastat Lozenge - MM 1 each Q4H PRN Administration SORE THROAT Fluticasone Propionate 1 spray 10/13/16 12:45 10/16/16 21:12 Flonase - NS 1 spray BID [facility]I Administration Guaifenesin 10 ml 09/24/16 13:25 10/16/16 06:03 Robitussin Dm - PO 10 ml Q6H PRN Administration COUGH Hydrochlorothiazide 25 mg 09/25/16 14:29 10/16/16 10:32 Hctz - PO 25 mg DAILY [facility]I Administration Hydrocortisone 1 applic 10/03/16 13:55 10/16/16 21:13 Hytone 1% Cream - TP 1 applic BID PRN Administration DRY SKIN Ibuprofen 400 mg 09/24/16 13:25 10/17/16 06:07 Motrin - PO 400 mg Q6H PRN Administration PAIN Lidocaine 1 patch 10/06/16 10:00 10/16/16 10:32 Lidoderm Patch - TP Not Given DAILY [facility]I Loperamide HCl 4 mg 09/24/16 13:25 Imodium - PO Q6H PRN DIARRHEA Magnesium Hydroxide 30 ml 09/24/16 13:25 10/14/16 10:31 Milk Of Magnesia - PO 30 ml DAILY PRN Administration CONSTIPATION Naphazoline HCl/Pheniramine Maleate 2 drop 10/10/16 12:42 10/17/16 06:07 Visine-A - OU 2 drop QID PRN Administration FOR ITCHING Nicotine 21 mg 09/25/16 10:00 10/16/16 10:32 Nicoderm Patch - TD 21 mg DAILY [facility]QUI Administration Nicotine Polacrilex 2 mg 09/24/16 13:25 10/02/16 10:02 Nicorette Gum - BUC 2 mg Q2H PRN Administration NICOTINE REPLACEMENT RX Penicillin G Benzathine 2,400,000 unit 10/18/16 08:00 Bicillin L-A - IM 10/18/16 08:01 ONCE ONE Polyethylene Glycol 17 gm 10/17/16 10:00 Miralax (For Daily Use) - PO DAILY [facility] Multivit/Folic Acid/Iron 1 tab 09/25/16 10:00 10/16/16 10:31 Vitamins (Sjr) - PO 1 tab DAILY CHIQUI Administration Pseudoephedrine/Triprolidine 1 combo 09/24/16 13:25 10/11/16 21:07 Actifed - PO 1 combo TID PRN Administration NASAL CONGESTION Quetiapine Fumarate 50 mg 09/24/16 22:00 10/16/16 21:13 Seroquel - PO 50 mg BID CHIQUI Administration Ritonavir 100 mg 09/25/16 14:19 10/16/16 10:32 Norvir - PO 100 mg DAILY [facility]IQUI Administration Simethicone 80 mg 09/26/16 22:02 10/10/16 21:17 Mylicon - PO 80 mg QID PRN Administration GAS Thiamine HCl 100 mg 09/24/16 22:00 10/16/16 21:13 Vitamin B1 - PO 100 mg HS [facility]I Administration Trazodone HCl 300 mg 10/02/16 22:00 10/16/16 21:13 Desyrel - PO 300 mg HS [facility]QUI Administration Current Side Effect: No Lab tests ordered: Yes Lab tests reviewed: Yes Provider note:: Patient will complete this program on 10/18/16. He has met his treatment goals and will continue to address his issues in outpatient treatment at [facility]. Told instructional writer that from his participation in this program, he has learned the importance of establishing a sober support network in order to maintain sobriety. He responded well to Wellbutrin XL 450 mg po daily, Seroquel 50 mg po BID and Trazadone 300 mg po HS. Scripts for 30 days supply of these medications will be electronically transmitted to [facility] at [address] [place] [address]. He is stable for discharge on 10/18/16 Total face to face time:: 35 Mental Status Exam - Mental Status Exam Alert and Oriented to: Time, Place, Person Cognitive Function: Fair Patient Appearance: Well Groomed Mood: Hopeful, Euthymic Affect: Appropriate Patient Behavior: Cooperative Speech Pattern: Clear Voice Loudness: Normal Thought Process: Intact Thought Disorder: Not Present Hallucinations: Denies Suicidal Ideation: Denies Homicidal Ideation: Denies Insight/Judgement: Fair Sleep: Fair Appetite: Good Muscle strength/Tone: Normal Gait/Station: Normal Psychiatric Treatment Plan - Problem List (1) Alcohol dependence Current Visit: No (2) Cocaine dependence Current Visit: No Qualifiers: Substance use status: uncomplicated Qualified Code(s): F14.20 - Cocaine dependence, uncomplicated (3) Cannabis dependence, uncomplicated Current Visit: No (4) Nicotine dependence Current Visit: Yes (5) MDD (major depressive disorder) Current Visit: Yes (6) Arthritis Current Visit: No (7) Essential hypertension Current Visit: No (8) Peripheral neuropathy Current Visit: No (9) AIDS (acquired immune deficiency syndrome) Current Visit: No Initial treatment plan: Patient will be discharged tomorrow and referred to [facility] for outpatient treatment
[2016-10-17] MEDS ORDERED: PT OWN MED DRAWER 7, Y5N ONE ×2 (09:18→21:09)
[2016-10-17] MEDS: PRENATAL VITAMINS W/ FOLIC ACID TABLET (FP) PO SCH (10:35)
[2016-10-17] MEDS: RITONAVIR 100 MG TABLET PO SCH (10:35)
[2016-10-17] MEDS: FLUTICASONE PROP 0.05% 16 GM NASAL SPRAY NS SCH ×2 (10:35→21:10)
[2016-10-17] MEDS: ASPIRIN COATED 81 MG TABLET.EC PO SCH (10:35)
[2016-10-17] MEDS: EMTRICITABINE 200MG/TENOFOVIR 300MG PO SCH (10:35)
[2016-10-17] MEDS: QUEtiapine FUMARATE 50 MG TABLET PO SCH ×2 (10:35→21:08)
[2016-10-17] MEDS: amLODIPine BESYLATE 10 MG TABLET (FP) PO SCH (10:36)
[2016-10-17] MEDS: POLYETHYLENE GLYCOL 3350 119 GM BTL PO SCH (10:36)
[2016-10-17] MEDS: HYDROCHLOROTHIAZIDE 25 MG TABLET (FP) PO SCH (10:36)
[2016-10-17] MEDS: DARUNAVIR ETHANOLATE 800 MG TAB PO SCH (10:36)
[2016-10-17] MEDS: NICOTINE 21 MG/24 HOURS TOPICAL PATCH TD SCH (10:36)
[2016-10-17] MEDS: LIDOCAINE 5% TOPICAL PATCH TP SCH (10:36)
[2016-10-17] MEDS ORDERED: MAGNESIUM CITRATE 300 ML BOTTLE PO ONE (11:17)
[2016-10-17] MEDS: traZODone HCL 100 MG TABLET (FP) PO SCH (21:07)
[2016-10-17] MEDS: THIAMINE HCL 100 MG TABLET (FP) PO SCH (21:07)
[2016-10-17] MEDS: ATORVASTATIN CA 20 MG TABLET (FP) PO SCH (21:08)
[2016-10-17] MEDS: diphenhydrAMINE HCL 50 MG CAPSULE PO PRN (21:08)
[2016-10-18] MEDS: diphenhydrAMINE HCL 25 MG CAPSULE (FP) PO PRN (06:11)
[2016-10-18] MEDS: NAPHAZOLINE/PHENIRAMINE OPHTHALMIC 15 ML BOTTLE OU PRN (06:11)
[2016-10-18] MEDS: guaiFENesin/D-METHORPHAN HB 10 ML UNIT-DOSE CUPS PO PRN (06:11)
[2016-10-18] MEDS: IBUPROFEN 400 MG TABLET (FP) PO PRN (06:12)
[2016-10-18 06:59] VITALS: TEMP 98
[2016-10-18] MEDS ORDERED: PENICILLIN G BENZATHINE 2,400,000 UNIT/4 ML PFS IM ONE (08:00)
[2016-10-18] MEDS ORDERED: PT OWN MED DRAWER 7, Y5N ONE (09:18)
[2016-10-18] MEDS: DARUNAVIR ETHANOLATE 800 MG TAB PO SCH (09:33)
[2016-10-18] MEDS: RITONAVIR 100 MG TABLET PO SCH (09:33)
[2016-10-18] MEDS: EMTRICITABINE 200MG/TENOFOVIR 300MG PO SCH (09:33)
[2016-10-18] MEDS: amLODIPine BESYLATE 10 MG TABLET (FP) PO SCH (09:34)
[2016-10-18] MEDS: HYDROCHLOROTHIAZIDE 25 MG TABLET (FP) PO SCH (09:34)
[2016-10-18] MEDS: PRENATAL VITAMINS W/ FOLIC ACID TABLET (FP) PO SCH (09:34)
[2016-10-18] MEDS: QUEtiapine FUMARATE 50 MG TABLET PO SCH (09:34)
[2016-10-18] MEDS: ASPIRIN COATED 81 MG TABLET.EC PO SCH (09:34)
[2016-10-18] MEDS: POLYETHYLENE GLYCOL 3350 119 GM BTL PO SCH (09:35)
[2016-10-18] MEDS: LIDOCAINE 5% TOPICAL PATCH TP SCH (09:35)
[2016-10-18] MEDS: NICOTINE 21 MG/24 HOURS TOPICAL PATCH TD SCH (09:35)
[2016-10-18 10:17] VITALS: BP 137/77; PULSE 97
[2016-10-19] MEDS ORDERED: PENICILLIN G BENZATHINE 2,400,000 UNIT/4 ML PFS IM ONE (08:00)
== END 2016-10-18 09:35 | disposition home or self-care (01) | DRG 772 ==
LOC: YASAS 12:30 → Y3W 12:34
PROVIDERS: ADMIT Psychiatry & Neurology Psychiatry; ATTEND Psychiatry & Neurology Psychiatry
PROC: HZ42ZZZ Group Counseling for Substance Abuse Treatment, Cognitive-Behavioral (ICD-10-PCS; principal; 2016-10-18)
DX: F10.230 Alcohol dependence with withdrawal, uncomplicated (principal); F14.20 Cocaine dependence, uncomplicated; F12.20 Cannabis dependence, uncomplicated; F17.210 Nicotine dependence, cigarettes, uncomplicated; F32.9 Major depressive disorder, single episode, unspecified; I10 Essential (primary) hypertension; M12.9 Arthropathy, unspecified; G62.9 Polyneuropathy, unspecified; B20 Human immunodeficiency virus [HIV] disease